=== PATIENT | female | born 1945 | race Caucasian/White ===

== ENCOUNTER 2020-04-05 14:07 | Outpatient (CLI) | payer MEDICARE, SELFPAY ==
--- NOTE | 2020-04-05 18:11 | P.PCNPFT_ITS ---
PFT Interpretation PFT Interpretation: DOS: 04/05/2020 REQUESTING: Dr Correa REASON FOR TESTING: Shortness of breath PULMONARY FUNCTION TESTS Results are reliable and reproducible. Spirometry: FEV1 is 99%, FVC 89%, both normal. FEV1% normal. There is a non- statistically significant increase after bronchodilator. Lung volumes: TLC 88%, normal. Normal RV, no air trapping. Normal airway resistance. Diffusion: DLCO is normal, 81%. Flow volume loop: Normal. IMPRESSION: Normal study. Teresa Correa MD
== END 2020-04-05 14:08 | disposition home or self-care (01) ==
PROVIDERS: PCP Family Medicine; Visit Provider Internal Medicine Critical Care Medicine
DX: R05 Cough (principal)
CPT/HCPCS: 94060; 94726; 94729

== ENCOUNTER 2020-10-12 11:24 | Outpatient (NON) | payer MEDICARE, SELFPAY ==
[2020-10-13 06:44] LABS: SARS-CoV-2 RNA PCR Negative
== END 2020-10-12 11:25 ==
LOC: ANHCOVIDDT 11:25
PROVIDERS: PCP Family Medicine; Visit Provider Physician Assistant
DX: Z20.828 Contact with and (suspected) exposure to other viral communicable diseases (principal); R05 Cough
CPT/HCPCS: 87635; C9803; U0003

== ENCOUNTER 2022-05-06 13:08 | Outpatient (CLI) | payer MEDICARE, SELFPAY ==
--- NOTE | ~2022-05-06 | XR_ITS ---
EXAM: XR knee RT 2V DATE: 05/06/2022 13:39 HISTORY: CHRONIC PAIN IN RT KNEE . COMPARISON: None available. FINDINGS: Decreased mineralization. No fracture or dislocation. No lytic or blastic lesion. Moderate medial and severe lateral joint space narrowing. Tricompartmental osteophytosis, moderate in patello femoral and lateral compartments. No erosion or periosteal change. Minimal vascular calcification. 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 Reviewed, dictated and finalized at location K. IMPRESSION: Tricompartmental right knee osteoarthritis, severe in the lateral c ompartment.
--- NOTE | ~2022-05-06 | XR_ITS ---
EXAMINATION: XR shoulder LT min 2V DATE: 05/06/2022 13:40 INDICATION: Nontraumatic left shoulder pain TECHNIQUE: AP internally and externally rotated, AP oblique externally rotated and transscapular Y vi ews of the left shoulder were obtained. COMPARISON: None FINDINGS: Normal alignment. No fracture. Glenohumeral joint is normal. Mild acromioclavicular osteoarthritis. /Portions of the lungs are clear. Soft tissues are unremarkable. IMPRESSION: Mild acromioclavicular osteoarthritis. Reviewed, dictated and finalized at location A.
== END 2022-05-06 13:09 | disposition home or self-care (01) ==
PROVIDERS: PCP Family Medicine; Visit Provider Family Medicine
DX: M19.012 Primary osteoarthritis, left shoulder (principal); M17.11 Unilateral primary osteoarthritis, right knee
CPT/HCPCS: 73030; 73560

== ENCOUNTER 2022-07-31 09:51 | Outpatient (CLI) | payer MEDICARE, SELFPAY ==
--- NOTE | 2022-07-31 10:56 | ECG_ITS ---
Measurements Intervals Cameron Rate: 67 P: 85 RI: 169 QRS: 24 QRSD: 106 T: 68 QT: 413 QTc: 438 Interpretive Statements SINUS RHYTHM BORDERLINE T WAVE ABNORMALITY- ANTERIOR LEADS BASELINE ARTIFACT- I, III, AVR, AVL, AVF, V1, V4-V5 BORDERLINE ECG NO PREVIOUS ECG AVAILABLE FOR COMPARISON Electronically Signed On 07-31-2022 12:42:07 CDT by Héctor Castillo D.O.
[2022-07-31 11:20] LABS: Basophils Absolute Auto 0.1 K/mm3 (0.0-0.1); Basophils Percent Auto 1.1 % (0.2-1.2); Eosinophils Absolute Auto 0.1 K/mm3 (0-0.3); Eosinophils Percent Auto 1.9 % (0-4.4); Hematocrit 44.5 % (37.0-47.0); Hemoglobin 14.3 g/dL (12.0-15.0); Immature Granulocyte Absolute 0.03 K/mm3 (0.00-0.031); Immature Granulocyte Percent A 0.4 % (0-0.5); Lymphocytes Absolute Auto 1.87 K/mm3 (0.9-3.2); Mean Corpuscular HGB Conc 32.1 g/dl (32-36); Mean Corpuscular Hemoglobin 31.5 pg (26-34); Mean Platelet Volume 10.5 fl (7.4-10.4); Monocytes Absolute Auto 0.5 K/mm3 (0.1-0.6); Monocytes Percent Auto 7.2 % (2.6-8.5); Neutrophils Absolute Auto 4.5 K/mm3 (1.3-6.7); Neutrophils Percent Auto 63.4 % (45.5-73.1); Platelet Count Result 270 k/mm3 (150-375); Red Blood Count 4.54 M/mm3 (4.2-5.4); Red Cell Distribution Width 12.2 % (11.5-14.5); White Blood Count 7.2 K/mm3 (4.5-10.0)
[2022-07-31 11:28] LABS: Albumin Level 4.6 g/dL (3.5-5.1); Estimated Glomerular Filt Rate > 60; Glucose 99 mg/dL (65-110)
[2022-07-31 11:31] LABS: Urine Cotinine NEGATIVE
[2022-07-31 11:32] LABS: Hemoglobin A1C 5.5 % (<5.7)
== END 2022-07-31 09:52 | disposition home or self-care (01) ==
LOC: ANHSURGERY 10:00
PROVIDERS: PCP Family Medicine; Visit Provider Orthopaedic Surgery
DX: M17.11 Unilateral primary osteoarthritis, right knee (principal); Z01.818 Encounter for other preprocedural examination; R94.31 Abnormal electrocardiogram [ECG] [EKG]
CPT/HCPCS: 80307; 82040; 82565; 82947; 83036; 85025; 86850; 86900; 86901; 87081; 93005

== ENCOUNTER 2022-08-13 14:11 | Observation (INO) | payer MEDICARE, MEDICAID, SELFPAY ==
[2022-07-31 10:08] VITALS: BMI 33.7
--- NOTE | 2022-07-31 10:30 | PC.NURSE ---
Report to the Outpatient Waiting Room, entrance under the green pavilion located off [address], at time _0830 on date __08/12/22 . OR Time: __1030 . - You and your visitor will be asked to self-screen and do not enter if you have any COVID symptoms. - Only one visitor and NO children visitors are allowed at this time. - The patient visitor is requested to leave or wait in car when not with patient due to restrictions. - A mask is required within the hospital. Patients may have clear liquids (water, carbonated beverages, clear teas, apple juice) until 3 hours prior to surgery with a maximum of 20 ounces. - No food from midnight until time of surgery - Infants may have breast milk until 4 hours before surgery, infant formula 6 hours prior to surgery. - Children will be allowed to drink immediately following surgery. If applicable, please bring a bottle or sippy cup to assist with drinking. Juice, water, soda, and popsicles are readily available. For infants on formula, please bring formula the day of surgery. Pacifiers are allowed. Take the following medications with a SIP of water the morning of surgery: ____DONEPEZIL,LEVOTHYROXINE,SERTRALINE Medications to discontinue per physician __MULTIVITAMIN 3 DAYS PRE OP Date to take last dose__08/08/22 Please no make-up, nail azeri, hairspray, perfume, deodorant, or body powder the day of surgery. No jewelry (including any body piercings) or valuables the day of surgery, leave them at home. Please take a shower or bath the night before, or the morning of, surgery with an antibacterial soap. Wear comfortable, loose fitting clothing. Children are encouraged to wear pajamas. - Jewelry must be removed prior to entering the operating room. Rings and piercings that are not removed may be cut off. - The hospital will not accept responsibility for valuables. - Please leave all valuables, including medications, at home the day of surgery. If you are going home after surgery, a licensed furniture mover driver must drive you home. - NO public transportation without another adult. - We recommend that an adult stay with you for 24 hours following discharge. - We also recommend that you do not drive, make important decision, drink alcoholic beverages, or take any drugs that were not prescribed by your health care provider for at least 24 hours after your discharge time. For Pediatric surgeries, we recommend two adults accompany the child home (only one inside the building at this time). Follow any additional instructions given to you from your surgeon. If you or anyone in your household have experienced Covid symptoms in the past week, please notify your surgeon or the nurse liaison at the phone number below for possible testing. VERBAL AND WRITTEN instructions given to ___PATIENT and asked if any additional questions and then verbalized understanding. Patient advised to call surgeon office or pre surgery nurse liaison [phone] if any additional questions.
[2022-07-31 10:53] VITALS: BP 148/68; PULSE 72; RESP 18; TEMP 37.1; O2SAT 97
[2022-08-12] VITALS (23 sets, daily range): BP systolic 128–169; BP diastolic 55–89; PULSE 66–88; RESP 14–22; TEMP 36–36.7; O2SAT 93–100
--- NOTE | 2022-08-12 08:11 | WPDANESEPPF ---
Anes - Initial Pre Proc Eval Procedure: Operation Date: 08/12/22 10:30 Proposed Procedures p Right Total Knee Arthroplasty - Zeferino Melendez MD Date/Time: 08/12/22 08:11 Surgeon: Zeferino Melendez MD Pre Op Diagnosis: OA Right knee Patient Data Age: 77 Gender: F Height: 1.65 m Weight: 92.1 kg Last Vital Signs Temp 37.1 C 07/31/22 10:53 Pulse 72 07/31/22 10:53 Resp 18 07/31/22 10:53 BP 148/68 H 07/31/22 10:53 Pulse Ox 97 07/31/22 10:53 O2 Del Method Room Air 07/31/22 10:53 Allergies Allergy/AdvReac Type Severity Reaction Status Date / Time Sulfa (Sulfonamide Allergy Intermediate Rash Verified 08/12/22 09:15 Antibiotics) bee venom protein (honey bee) Allergy Unknown Hives Verified 08/12/22 09:15 sulfite Allergy Unknown Unknown Verified 08/12/22 09:15 Home Medications Medication Instructions Recorded Confirmed Type meloxicam 15 mg tablet 15 mg PO DAILY #90 tabs 03/14/22 08/12/22 Rx levothyroxine 75 mcg tablet See Rx Instructions .Route 04/15/22 08/12/22 Rx .COMPLEX #90 tabs simvastatin 10 mg tablet See Rx Instructions .Route 04/18/22 08/12/22 Rx .COMPLEX #90 tabs donepezil 5 mg tablet See Rx Instructions .Route 07/08/22 08/12/22 Rx .COMPLEX #30 tabs sertraline 25 mg tablet 50 mg PO DAILY 07/09/22 08/12/22 History ibuprofen 400 mg tablet 400 mg PO Q6H PRN Pain 07/31/22 08/07/22 History multivitamin 1 tablet PO DAILY 07/31/22 08/07/22 History rivaroxaban 10 mg tablet (Xarelto) 10 mg PO DAILY PE prophylaxis s/p 08/07/22 08/12/22 Rx surgery 14 days #14 tabs Patient hx anesthesia problems: none Family hx anesthesia problems: none Results Review: All pre-operative results and documents have been reviewed as part of the pre-operative evaluation. [facility] Past Medical History Medical History (Updated 08/12/22 @ 08:12 by Ned Reilly MD) Anxiety Arthritis of left knee Chronic cough Hepatitis C antibody test negative (06/28/21) Hypothyroidism Mixed hyperlipidemia Obesity (BMI 30.0-34.9) Sleep apnea Torn meniscus 2016 Surgical History Surgical History History of tubal ligation Family History Family History Mother Carcinoma of colon Grandparent Carcinoma of colon Father Family history of Alzheimer's disease Other Family history of elevated blood lipids Social History Social History Smoking status: Never smoker Additional smoking assessment comments: DENIES ANY FORM OF TOBACCO USE Alcohol intake: current Alcohol use details: ONE DRINK PER MONTH Substance use: never Substance use type: does not use Living arrangements: alone Gender identity (if verbalized by the patient): Female Spiritual care concerns: No Agree to blood products: Yes Anes - Eval Final PreProcedure Day of Procedure 08/12/22 08:11 Patient weight: obese Heart: regular rate and rhythm Lungs: clear to auscultation and normal air movement Airway: Mallampati scale class II Neurological: alert and oriented Last oral intake: >/= 8 hours ASA classification: III Emergent: no Anesthetic plan: proceed Anesthesia type and monitoring: general LMA Results Review: All pre-operative results and documents have been reviewed as part of the pre-operative evaluation. Informed Consent: The patient's anesthetic plan and its attendant risks and benefits were discussed with the patient/family/POA. Questions were solicited and answers provided to the satisfaction of the patient/family/POA.
[2022-08-12] MEDS: ACETAMINOPHEN 500 MG TABLET 1000 MG PO (09:17)
--- NOTE | 2022-08-12 09:20 | WPDHPUPDATE1 ---
History and Physical Update Update Date/Time: 08/12/22 09:21 History and Physical has been reviewed, including an updated exam of the patient. There are NO changes in the patient's condition. Risks, benefits, and alternatives have been discussed and questions answered. Patient agrees to proceed with procedure.
[2022-08-12] MEDS: LACTATED RINGERS 1,000 ML 30 ML IV CONT ×2 (09:25→12:40)
[2022-08-12] MEDS: TRANEXAMIC ACID 1,000MG/ISO100 1,000 MG/100 ML BAG 200 MG IVPB (09:27)
--- NOTE | 2022-08-12 10:03 | WPDANESPNB ---
Anes - Peripheral Nerve Block Date/Time: 08/12/22 10:03 I have discussed with the patient/family/POA the placement of a peripheral nerve block for post-operative pain management, including associated risks, benefits, complications, and side effects. Alternative methods of post-operative analgesia were detailed. Questions were solicited and answers provided to the satisfaction of the patient/family/POA. Time-Out: A pre-procedural Time-Out was completed immediately before starting the procedure and confirmed: Patient Identification, Site, Procedure, Patient Position and the Availability of Requisite Equipment. Clinical Indications: Acute post-operative pain management requested by the operative surgeon. Nerve Block Insertion Note Anes-nerve block: adductor canal right Patient position: supine Skin prep: chlorhexidine Needle: 22 gauge, stimulating, insulated echogenic needle. Needle length: 80 mm Technique: ultrasound Technique comment: in plane Injectate: bupivacaine 0.25% with epi 5 mcg/ml (30cc) Observations: tolerated well Complications: none Procedure start time:: 955 Procedure end time:: 1000
[2022-08-12] MEDS: ceFAZolin 2 GM/D5W 50 ML 2 GM/50 ML BAG IVPB ×2 (10:20→17:03)
[2022-08-12] MEDS: GENTAMICIN BONE CEMENT REFOBACIN 1 EACH TOPICAL (10:55)
[2022-08-12] MEDS: fentaNYL CITRATE INJ (*CRX) 100 MCG/2 ML VIAL 25 MCG IV PUSH ×8 (12:57→14:32)
[2022-08-12] MEDS: oxyCODONE/ACETAMINOPHEN (*CRX) 5-325 MG TABLET 1 TABLET PO ×3 (15:44→20:47)
[2022-08-12] MEDS: SODIUM CHLORIDE 0.9% IV 1,000 ML 125 ML IV CONT (16:59)
[2022-08-12] MEDS: LEVOTHYROXINE SODIUM 75 MCG TABLET BY MOUTH (17:04)
[2022-08-12] MEDS: SENNA/DOCUSATE SODIUM TABLET 2 TAB PO (17:04)
[2022-08-12] MEDS: SIMVASTATIN 10 MG TABLET BY MOUTH (17:04)
[2022-08-12] MEDS: DONEPEZIL HCL 5 MG TABLET BY MOUTH (17:04)
[2022-08-12] MEDS: FAMOTIDINE 20 MG TABLET PO (20:47)
[2022-08-12] MEDS: oxyCODONE HCL (*CRX) 2.5 MG TAB IR PO (22:51)
--- NOTE | 2022-08-12 23:01 | ADMGEN ---
This patient, Wendi Colon, was admitted to Medical Room 256-01. Patient/family oriented to hospital policies and general routines including ID bracelet, bed and alarms, visiting hours, pain management, procedures, bathroom and other care routines, personal items, smoking policy, room service/diet, and visiting hours. Information on how to activate the Rapid Response Team has been discussed. Patient/Family are encouraged to report perceived risks to care and to ask questions if they do not understand what they are told or what they should do. Admitted at 1700
[2022-08-13] VITALS (7 sets, daily range): BP systolic 114–143; BP diastolic 43–58; PULSE 70–82; RESP 14–16; TEMP 36.5–37.1; O2SAT 91–100
--- NOTE | ~2022-08-13 | XR_ITS ---
EXAMINATION: XR knee RT 2V DATE: 08/12/2022 12:49 INDICATION: Right knee arthroplasty. Postop. TECHNIQUE: 2 views of right knee were obtained. COMPARISON: Right knee radiographs 08/07/2022 FINDINGS: There is a total right knee arthroplasty in near-anatomic alignment with patellar resurfaci ng. No fracture. There is gas in the knee joint and soft tissues, consistent with recent surgery. IMPRESSION: 1. Total right knee arthroplasty in near-anatomic alignment. Reviewed, dictated and finalized at location A.
[2022-08-13] MEDS: oxyCODONE/ACETAMINOPHEN (*CRX) 5-325 MG TABLET 1 TABLET PO ×4 (01:30→20:36)
[2022-08-13] MEDS: ceFAZolin 2 GM/D5W 50 ML 2 GM/50 ML BAG IVPB ×2 (01:32→11:48)
[2022-08-13] MEDS: LEVOTHYROXINE SODIUM 75 MCG TABLET BY MOUTH (05:35)
[2022-08-13] MEDS: ONDANSETRON INJ 4 MG/2 ML VIAL IV PUSH (08:05)
--- NOTE | 2022-08-13 08:36 | PM.DS ---
DS: Admitting Diagnosis Discharge Date 08/13/2022 Admitting Diagnosis Right knee osteoarthritis DS: Discharge Diagnosis Discharge Diagnosis (1) Status post total right knee replacement: Code(s): Z96.651 - Presence of right artificial knee joint Status: Acute Plan 77-year-old female postop day 1 after total right knee replacement with Dr. Melendez. Overall doing very well this morning. She does have some swelling to the right knee but this is expected due to the recent surgical procedure. Postoperative instructions were discussed with her in detail. She had no further questions. Due to her history of memory loss and forgetfulness, home health will be ordered for 2 weeks. She also has her boyfriend at home to help her. Plan to see her in 2 weeks for wound check. We will also make sure that she is scheduled for continued outpatient physical therapy at that time. DS: Summary Hospital Course Reason for hospitalization: Observation after outpatient procedure Hospital Course: 77-year-old female who underwent right total knee replacement with Dr. Melendez on 08/12/2022. Uneventful overnight stay. Postoperative instructions were discussed with her. Plan to have her see therapy today prior to discharge home with home health. Status at Discharge Functional status at discharge: uses cane/walker Overall status at discharge: patient is progressing back to baseline Time Spent with Patient Time attestation: Total time spent providing and/or coordinating discharge services: Time spent: Less than 30 minutes Exam Const: General: comfortable and no acute distress Eyes: General: appearance normal, both eyes and all related structures Resp: Effort & Inspection: normal respiratory effort Skin: General skin exam: ecchymosis (Globally, right knee) Extrem: Other: Exam of the right knee shows a clean and dry surgical dressing. [id number] swelling around the knee, as expected from the surgical procedure. No numbness or tingling into the lower leg. She is able to plantar and dorsiflex the foot without difficulty. Neurovascular status right lower extremity is intact. Calves negative. Psych: Mental Status: mental status grossly normal Discharge Plan Discharge Patient Disposition: Home Health Service Discharge Instructions: 3 times daily for 20 minutes each time, reclining in bed with ice packs over the incision and a pillow underneath the calf of the affected leg, not under the knee. Your wound is glued so it is okay to remove the dressing, get into the shower and get the wound wet in two days. Be sure to read through all the information that came from my office and the hospital.? Most of the answers you will need can be found that material. Call the office with any questions that you cannot find answers to, or concerns you may have. After the Xarelto is completed, start taking one coated 325 mg aspirin daily and do this for four more weeks. Please call [facility] at as soon as possible to arrange for/verify your follow-up appointment to be seen in 2 weeks.? Also, call the office with any orthopedic/surgical related questions prior to follow-up. Be sure to get up and move around several times daily but do not overdo it. Take the arthritis formula Tylenol 650 mg tablet on an 8 hour schedule.? A good 8 hour schedule is:? 6:00 a.m., 2:00 p.m., 10:00 p.m. you may take the prescribed pain medication?along with?the Tylenol; it is?not?to be taken instead of the Tylenol.? I would like for you to take the Tylenol on a schedule for 2-3 weeks. Use the laxative?Senekot S?twice daily for 2 weeks after discharge while taking the prescription pain medication. Use?Miralax?once daily for 2 weeks after discharge while taking the prescription pain medication. Once the Xarelto is completed, if you wish to supplement your pain regimen with [id number] anti-inflammatory such as Advil or Aleve, that is fine.? Follow the label
--- NOTE | 2022-08-13 09:50 | WPDANESPN ---
Anes - Prog Note Post-Op Date/Time: 08/13/22 10:37 Cardiovascular status: normal Respiratory status: normal Airway patency: baseline Mental status: baseline Post-Op hydration status: normal Vital Signs: Last Vital Signs Temp 36.9 C 08/13/22 05:52 Pulse 70 08/13/22 05:52 Resp 14 08/13/22 05:52 BP 114/58 L 08/13/22 05:52 Pulse Ox 95 08/13/22 05:52 O2 Del Method Room Air 08/13/22 08:00 O2 Flow Rate 2 08/12/22 17:00 Pain Score (VAS): 01/03 I/O: Intake & Output 08/12/22 08/13/22 08/13/22 23:59 07:59 15:59 Intake Total 350 350 0 Balance 350 350 0 Post-procedural complaints: nausea and vomiting Patient Feedback: Patient satisfied with anesthetic care.
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
[2022-08-13] MEDS: FAMOTIDINE 20 MG TABLET PO ×2 (11:44→20:36)
[2022-08-13] MEDS: DONEPEZIL HCL 5 MG TABLET BY MOUTH (11:44)
[2022-08-13] MEDS: SIMVASTATIN 10 MG TABLET BY MOUTH (11:45)
[2022-08-13] MEDS: MULTIVITAMINS THERAPEUTIC TAB (*BKC) 1 TABLET PO (11:45)
[2022-08-13] MEDS: SERTRALINE HCL 50 MG TABLET PO (11:45)
[2022-08-13] MEDS: RIVAROXABAN 10 MG TABLET PO (11:45)
--- NOTE | 2022-08-13 12:36 | SUR.PHASEI ---
1400 08/12/22 PT MEETS ANESTHESIA CRITERIA TO BE DISCHARGED FROM PACU. WAITING ON A FLOOR ROOM TO BECOME AVAILABLE. ON HOLD IN PACU.
[2022-08-13] MEDS: SENNA/DOCUSATE SODIUM TABLET 2 TAB PO (19:31)
[2022-08-13] MEDS: oxyCODONE HCL (*CRX) 2.5 MG TAB IR PO (23:47)
[2022-08-14] MEDS: oxyCODONE/ACETAMINOPHEN (*CRX) 5-325 MG TABLET 1 TABLET PO ×4 (01:07→14:17)
[2022-08-14 04:46] VITALS: BP 127/50; PULSE 80; RESP 16; TEMP 36.6; O2SAT 91
[2022-08-14] MEDS: LEVOTHYROXINE SODIUM 75 MCG TABLET BY MOUTH (05:30)
[2022-08-14] MEDS: SENNA/DOCUSATE SODIUM TABLET 2 TAB PO ×2 (08:12→18:12)
[2022-08-14] MEDS: FAMOTIDINE 20 MG TABLET PO ×2 (08:13→20:09)
[2022-08-14] MEDS: SERTRALINE HCL 50 MG TABLET PO (08:13)
[2022-08-14] MEDS: SIMVASTATIN 10 MG TABLET BY MOUTH (08:13)
[2022-08-14] MEDS: DONEPEZIL HCL 5 MG TABLET BY MOUTH (08:13)
[2022-08-14] MEDS: polyethylene glycoL 3350 17 GM POWD.PACK PO (08:13)
[2022-08-14] MEDS: RIVAROXABAN 10 MG TABLET PO (08:13)
[2022-08-14] MEDS: MULTIVITAMINS THERAPEUTIC TAB (*BKC) 1 TABLET PO (08:13)
--- NOTE | 2022-08-14 08:52 | PCOTNOTE ---
Attempted to see patient this AM, patient currently eating breakfast.
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
--- NOTE | 2022-08-14 11:20 | PM.PNORT ---
Progress Note: A&P Assessment and Plan (1) Status post total right knee replacement: Code(s): Z96.651 - Presence of right artificial knee joint Status: Acute Plan 77-year-old female postop day 2 after total right knee replacement with Dr. Melendez. She developed nausea with vomiting yesterday but this has resolved. I added Zofran to her discharge medications to take as needed. Plan for her to see therapy again this afternoon while in hospital and then discharge home with family. She will also have home health out tomorrow to help her with her medications and therapy. Continue to plan follow-up in 2 weeks for wound check in the office. Subjective Subjective Date/Time Seen: 08/14/22 11:20 Post Op day: 2 Principal diagnosis: Status post total right knee replacement Interval history: 77-year-old female minute for observation after total right knee replacement with Dr. Melendez. Did develop some nausea yesterday and had a skip therapy session. She was kept another night. Nausea has resolved this morning. She does seem a little more out of it than usual. Review of Systems Constitutional: Constitutional: Reports as per HPI Exam Const: General: comfortable and no acute distress Eyes: General: appearance normal, both eyes and all related structures Resp: Effort & Inspection: normal respiratory effort GI: Inspection: non-distended Skin: General skin exam: normal color Extrem: Other: Exam of the right knee shows a clean and dry surgical dressing. [id number] swelling around the knee, as expected from the surgical procedure. No numbness or tingling into the lower leg. She is able to plantar and dorsiflex the foot without difficulty. Neurovascular status right lower extremity is intact. Calves negative. Psych: Mental Status: mental status grossly normal Objective Data Vital Signs Vital Signs: Vital Signs - 24 hr 08/13/22 14:14 08/13/22 18:14 08/13/22 19:25 Temperature 98.7 F 98.2 F 98.1 F Pulse Rate 79 74 82 Respiratory Rate 14 15 16 Blood Pressure 122/52 L 124/58 L 128/50 L Pulse Oximetry 100 100 96 Oxygen Delivery 08/13/22 22:58 08/14/22 04:46 08/14/22 10:00 Temperature 98.2 F 97.8 F Pulse Rate 81 80 Respiratory Rate 16 16 Blood Pressure 123/51 L 127/50 L Pulse Oximetry 91 91 Oxygen Delivery Room Air Intake/Output Intake/Output: Intake & Output 08/11/22 08/12/22 08/13/22 08/14/22 23:59 23:59 23:59 23:59 Intake Total 500 1272 570 Balance 500 1272 570 Meds/Results Medications: Active Medications Generic Name Dose Route Start Last Admin Trade Name Freq PRN Reason Stop Dose Admin Donepezil HCl 5 mg 08/12/22 18:00 08/14/22 08:13 Donepezil Hcl 5 Mg Tablet BY MOUTH 5 mg DAILY CHOCO Administration Famotidine 20 mg 08/12/22 21:00 08/14/22 08:13 Famotidine 20 Mg Tablet PO 20 mg Q12HR CHOCO Administration Levothyroxine Sodium 75 mcg 08/12/22 17:00 08/14/22 05:30 Levothyroxine Sodium 75 Mcg Tablet BY MOUTH 75 mcg DAILY@0630 CHOCO Administration Multivitamins Therapeutic 1 tablet 08/13/22 09:00 08/14/22 08:13 Multivitamins Therapeutic Tab (*Bkc) PO 1 tablet DAILY CHOCO Administration Naloxone HCl 0.1 mg 08/12/22 16:29 Naloxone Hcl 0.4 Mg/Ml Vial IV PUSH Q2M PRN Opiate Reversal Ondansetron HCl 4 mg 08/12/22 16:29 08/13/22 08:05 Ondansetron Inj 4 Mg/2 Ml Vial IV PUSH 4 mg Q4H PRN Administration Nausea And Vomiting Oxycodone HCl 2.5 mg 08/12/22 16:29 08/13/22 23:47 Oxycodone Hcl (*Crx) 2.5 Mg Tab Ir PO 2.5 mg Q4H PRN Administration Pain Rated 7-10 Oxycodone/Acetaminophen 1 tablet 08/12/22 15:40 08/14/22 10:02 Oxycodone/Acetaminophen (*Crx) 5-325 Mg Tablet PO 08/14/22 15:39 1 tablet Q4HR CHOCO Administration Polyethylene Glycol 17 gm 08/13/22 09:00 08/14/22 08:13 Polyethylene Glycol 3350 17 Gm Powd.Pack PO 17 gm QAM CHOCO Administration Rivaroxaban 10 mg 0
[2022-08-14 11:40] VITALS: BP 133/50; PULSE 90; RESP 16; O2SAT 93
[2022-08-14] MEDS: oxyCODONE HCL (*CRX) 2.5 MG TAB IR PO ×2 (11:42→18:12)
[2022-08-14 15:00] VITALS: BP 131/57; PULSE 92; RESP 16; TEMP 36.7; O2SAT 94
--- NOTE | 2022-08-14 15:12 | PC.NURSE ---
Spoke with patient about discharge. Patient is comfortable staying another night to work with therapy again tomorrow and ensure her safety upon returning home.
[2022-08-14 21:00] VITALS: BP 142/50; PULSE 87; RESP 16; TEMP 36.9; O2SAT 95
[2022-08-15] MEDS: LEVOTHYROXINE SODIUM 75 MCG TABLET BY MOUTH (05:34)
[2022-08-15 05:36] VITALS: BP 146/52; PULSE 91; RESP 16; TEMP 37.1; O2SAT 94
--- NOTE | 2022-08-15 07:39 | PM.PNORT ---
Progress Note: A&P Assessment and Plan (1) Status post total right knee replacement: Code(s): Z96.651 - Presence of right artificial knee joint Status: Acute Plan 77-year-old female postop day 3 after total right knee replacement with Dr. Melendez. She did struggle yesterday afternoon with therapy. She states this is because she was not able to eat very well prior to that session. She is on Aricept and I feel that some of her memory issues may be playing into this fatigue. I feel that she would do better at home. She has home health scheduled for her medications and therapy. I also spoke with her daughter and she plans to stay with her over the weekend. Plan discharge today after morning therapy visit. Will make an addendum to discharge summary. Subjective Subjective Date/Time Seen: 08/15/22 07:39 Post Op day: 3 Principal diagnosis: Status post total right knee replacement Interval history: 77-year-old female admitted for observation after total right knee replacement with Dr. Melendez. She was kept another night due to feelings of fatigue during therapy yesterday afternoon. This morning she is feeling much better but still does complain of right knee pain. She states she felt fatigued yesterday evening due to not being able to eat as much as she normally had. Review of Systems Constitutional: Constitutional: Reports as per HPI Exam Const: General: comfortable and no acute distress Eyes: General: appearance normal, both eyes and all related structures Resp: Effort & Inspection: normal respiratory effort GI: Inspection: non-distended Skin: General skin exam: normal color Extrem: Other: Exam of the right knee shows a clean and dry surgical dressing. [id number] swelling around the knee, as expected from the surgical procedure. No numbness or tingling into the lower leg. Neurovascular status right lower extremity is intact. Calves negative. Psych: Mental Status: mental status grossly normal Objective Data Vital Signs Vital Signs: Vital Signs - 24 hr 08/14/22 10:00 08/14/22 11:40 08/14/22 15:00 Temperature 98.0 F Pulse Rate 90 92 Respiratory Rate 16 16 Blood Pressure 133/50 L 131/57 L Pulse Oximetry 93 94 Oxygen Delivery Room Air 08/14/22 21:00 08/15/22 05:36 Temperature 98.5 F 98.7 F Pulse Rate 87 91 Respiratory Rate 16 16 Blood Pressure 142/50 H 146/52 H Pulse Oximetry 95 94 Oxygen Delivery Intake/Output Intake/Output: Intake & Output 08/12/22 08/13/22 08/14/22 08/15/22 23:59 23:59 23:59 23:59 Intake Total 500 1272 2132 450 Output Total 200 Balance 500 1272 2132 250 Meds/Results Medications: Active Medications Generic Name Dose Route Start Last Admin Trade Name Freq PRN Reason Stop Dose Admin Donepezil HCl 5 mg 08/12/22 18:00 08/14/22 08:13 Donepezil Hcl 5 Mg Tablet BY MOUTH 5 mg DAILY CHOCO Administration Famotidine 20 mg 08/12/22 21:00 08/14/22 20:09 Famotidine 20 Mg Tablet PO 20 mg Q12HR CHOCO Administration Levothyroxine Sodium 75 mcg 08/12/22 17:00 08/15/22 05:34 Levothyroxine Sodium 75 Mcg Tablet BY MOUTH 75 mcg DAILY@0630 CHOCO Administration Multivitamins Therapeutic 1 tablet 08/13/22 09:00 08/14/22 08:13 Multivitamins Therapeutic Tab (*Bkc) PO 1 tablet DAILY CHOCO Administration Naloxone HCl 0.1 mg 08/12/22 16:29 Naloxone Hcl 0.4 Mg/Ml Vial IV PUSH Q2M PRN Opiate Reversal Ondansetron HCl 4 mg 08/12/22 16:29 08/13/22 08:05 Ondansetron Inj 4 Mg/2 Ml Vial IV PUSH 4 mg Q4H PRN Administration Nausea And Vomiting Oxycodone HCl 2.5 mg 08/12/22 16:29 08/14/22 18:12 Oxycodone Hcl (*Crx) 2.5 Mg Tab Ir PO 2.5 mg Q4H PRN Administration Pain Rated 7-10 Polyethylene Glycol 17 gm 08/13/22 09:00 08/14/22 08:13 Polyethylene Glycol 3350 17 Gm Powd.Pack PO 17 gm QAM CHOCO Administration Rivaroxaban 10 mg 08/13/22 10:00 08/14/22 08:13 Rivaroxaban
[2022-08-15] MEDS: SENNA/DOCUSATE SODIUM TABLET 2 TAB PO (08:05)
[2022-08-15] MEDS: SERTRALINE HCL 50 MG TABLET PO (08:06)
[2022-08-15] MEDS: RIVAROXABAN 10 MG TABLET PO (08:06)
[2022-08-15] MEDS: MULTIVITAMINS THERAPEUTIC TAB (*BKC) 1 TABLET PO (08:06)
[2022-08-15] MEDS: SIMVASTATIN 10 MG TABLET BY MOUTH (08:06)
[2022-08-15] MEDS: DONEPEZIL HCL 5 MG TABLET BY MOUTH (08:06)
[2022-08-15] MEDS: FAMOTIDINE 20 MG TABLET PO (08:06)
[2022-08-15] MEDS: polyethylene glycoL 3350 17 GM POWD.PACK PO (08:06)
[2022-08-15 10:00] VITALS: BP 142/54; PULSE 88; RESP 16; TEMP 37.1; O2SAT 94
--- NOTE | 2022-08-26 11:44 | P.OP_ITS ---
Procedure Note - Detailed Date of Procedure 08/12/22 Pre-op Diagnosis OA Right knee Post-op Diagnosis Same Procedure Performed R TKA Surgeon Zeferino Melendez MD Anesthesia General and Regional Description of Procedure The patient was identified and proper site identified. In the preop holding area the anesthesia team performed a right sub sartorial block after which the patient was taken to the operating room and transferred to the OR table positioning supine taking care to pad the torso and extremities. After general anesthesia was carried out, a nonsterile tourniquet was placed high on the right thigh. The right lower extremity was prepped and draped in the usual sterile fashion. The extremity was exsanguinated and with the knee flexed tourniquet was inflated to 300 mmHg remaining up for approximately 65 minutes. An anterior midline incision was made. Infra and suprapatellar fat pads were excised. Patella was resected leaving 15 mm thickness and prepared for the 31 round three peg component. Using the intramedullary guide the distal femur was cut in the proper orientation for the size 65 femoral component. Using the extramedullary guide the tibia was cut perpendicular to the long axis protecting collateral ligaments and popliteal structures. It was sized to a 67. Flexion and exten regina gaps were balanced. Trial reduction was undertaken and the weight-bearing line was noted to passed through the center of the joint. Proximal tibia was drilled and punched in the proper orientation for the real component. Trial components were removed. The bone surfaces were washed with pulsatile lavage and dried. The real components were cemented simultaneously. The knee was held in extension and the patella held clamped until the cement had cured. Excess cement was removed from the joint. After trialing it was determined that the 11 mm insert gave full range of motion from 0-120 degrees of flexion and the patella tracked in the femoral groove with no lift-off. After final lavage the joint the real 11 insert was placed and secured with a locking bar. A Betadine and saline wash was placed into the wound and allowed to sit for approximately 3 minutes and then evacuated. Periarticular tissues were infiltrated with 60 cc of the arthroplasty solution. Surgicel powder was applied into the wound during the closure. The extensor mechanism was repaired with #2 Vicryl suture and 0 looped PDS suture. Subcu was reapproximated with 2-0 stratafix and glue for the skin. A sterile dressing was applied. She tolerated the procedure well, was awakened and extubated, transferred to the bed and was taken to recovery area in stable condition. There were no known intraoperative complications. Perioperative antibiotics were administered. Estimated Blood Loss 100 Tourniquet Time 65 Urine Output 200 Drains No Packing No Pathology None sent Complications No immediate complications Condition Stable Disposition PACU
== END 2022-08-15 12:49 | disposition home health service (06) ==
LOC: ANHSURGERY 14:13 → ANH2MED 14:13
PROVIDERS: Admitting Provider Orthopaedic Surgery; PCP Family Medicine; Visit Provider Orthopaedic Surgery
PROC: (CPT 27447; principal; 2022-08-12 10:30)
DX: M17.11 Unilateral primary osteoarthritis, right knee (principal); G89.18 Other acute postprocedural pain; R11.2 Nausea with vomiting, unspecified; F41.9 Anxiety disorder, unspecified; R05.9 Cough, unspecified; E03.9 Hypothyroidism, unspecified; E78.2 Mixed hyperlipidemia; M17.12 Unilateral primary osteoarthritis, left knee; R53.83 Other fatigue; E66.9 Obesity, unspecified; Z68.33 Body mass index [BMI] 33.0-33.9, adult; G47.30 Sleep apnea, unspecified; Z79.01 Long term (current) use of anticoagulants; Z79.1 Long term (current) use of non-steroidal anti-inflammatories (NSAID); Z79.891 Long term (current) use of opiate analgesic; Z79.899 Other long term (current) drug therapy
CPT/HCPCS: 27447; 64447; 73560; 80307; 82040; 82565; 82947; 83036; 85025; 86850; 86900; 86901; 87081; 93005; 97110; 97116; 97161; 97165; 97530; 97535; A9270; C1713; C1776; G0378; J0171; J0690; J1100; J2250; J2270; J2310; J2405; J2704; J2795; J3010; J7030; J7120

== ENCOUNTER 2022-09-12 10:00 | Outpatient (RCR) | payer MEDICARE, MEDICAID, SELFPAY ==
--- NOTE | 2022-08-19 13:47 | PTOPEVAL1 ---
Assessment and note entered by Alejandra Edgar, PT Evaluation Information Assessment Status Evaluation Diagnosis s/p R TKR Onset 08-12-22 Subjective Information used a walker for few days, and then it got in the way in her house; now not using anything to walk; doing the lying down and sitting exercises from the hospital; Reported Pain Level Pain Score Self Report pain range 0-3/10 R knee Additional Pain Score Comments reports increase pain with: squat down,sharp when turn knee a certain way; reported walking/stand tolerance 1 hour; sleeping is now OK, use pillow under knee; instructed on use of pillow between knees when lie on her side; Assessment PT Clinical Summary Harmeet is s/p R TKR one week ago. She lives alone, has been walking without an assistive device the past few days and doing the exercises from the hospital. She presents with R knee active ROM in sitting (-20') to 95' and supine stretch knee extension (-15'). She ambulates with a limp on her R LE, encouraged her to use the cane or walker PRN to avoid limp. There is edema and bruising over R knee. Skilled PT services are indicated to increase the ROM and strength of her R knee, modalities to decrease pain and edema, gait and balance retraining and education to progress HEP. Plan of Care Interventions Electrical Stimulation,Gait Training,Hot Pack/Cold Pack,Intermittent Compression,Manual Therapy, Neuro Re-education,Patient/Caregiver Education, Therapeutic Activities,Therapeutic Exercise PT Services Indicated Yes Treatment Frequency and 2x/wk for 3 weeks Duration These treatments will address the objective and functional deficits as defined above. The patient will be advanced safely and appropriately in order for the patient to progress towards his/her prior level of function. Additional exercises will be introduced and as well as a comprehensive home exercise program upon discharge, if needed, ?to ensure carryover of functional gains achieved in the clinic. This treatment plan has been reviewed and agreement upon by the patient.
--- NOTE | 2022-09-09 09:57 | PCPTNOTE ---
pt called and canceled today's appt;
--- NOTE | 2022-09-12 10:46 | PTOPDC ---
Assessment and note entered by Alejandra Edgar, PT Evaluation Information Assessment Status Discharge Diagnosis s/p R TKR Onset 08-12-22 Subjective Information Wendi reports: doing OK getting around her house, use the cane sometimes when go out, problems getting knee comfortable at night with sleeping-- knee is uncomfortable; have not been using ice anymore--reinstruct to use PRN, at end of day when knee is swollen and before sleep to ease pain; doing exercises without any problems; Reported Pain Level Pain Score Self Report Additional Pain Score Comments pain range of 0-3/10 R knee pain; uncomfortable at night with sleeping; standing/walking tolerance of 1 hour; doing more at home--shampooed rugs, pain does not stop me from doing anything; still have some swelling in knee--reinforced ice use and elevation; is not taking any pain meds for knee; Assessment PT Clinical Summary Harmeet has received 4 PT sessions. Compared to the initial evaluation--she improved in all areas except pain rating is the same: strength of R LE, ROM of knee 0'- 105' active in sitting; gait without device, activity level and stair ability with alternating pattern. She is independent with her home exercises and reports more activity. The goals were partially achieved. Discharge PT services, pt is to continue with her home exercises, with rest, ice and elevation PRN for swelling. Plan of Care PT Services Indicated No
== END 2022-09-12 14:45 | disposition home or self-care (01) ==
LOC: ANHPT 10:00
PROVIDERS: PCP Family Medicine; Visit Provider Nurse Practitioner
DX: Z47.1 Aftercare following joint replacement surgery (principal); Z96.651 Presence of right artificial knee joint
CPT/HCPCS: 97016; 97110; 97116; 97140; 97161

== ENCOUNTER 2022-09-25 12:14 | Emergency (ER) | payer MEDICARE, MEDICAID, SELFPAY ==
--- NOTE | ~2022-09-25 | CT_ITS ---
EXAMINATION: CT abdomen pelvis w con DATE: 09/25/2022 14:42 INDICATION: Right flank pain. Nausea and vomiting. TECHNIQUE: Computed tomography (CT) of the abdomen and pelvis was performed with 100 mL Omnipaque 350 intravenous contrast. Automated exposure control and iterative reconstruction technique were employe d. The dose-length product was 1108.66 mGy-cm. COMPARISON: None. FINDINGS: The visualized portions of the lung bases demonstrate mild atelectasis. No pleural effusion . The heart size is normal. No pericardial effusion. There is a small sliding hiatal hernia. The live r, gallbladder, spleen, pancreas, adrenal glands, and kidneys are normal. There is diverticulosis of the colon without evidence of diverticulitis. There are no dilated loops of bowel. The appendix is no rmal. There are no pathologically enlarged lymph nodes. There is no free intraperitoneal fluid. There is a 4.6 cm cyst in left ovary. There is severe lumbar spondylosis. IMPRESSION: 1. Small sliding hiatal hernia. 2. 4.6 cm cyst in left ovary, likely benign. Pelvis ultrasound is recommended in one year. Reviewed, dictated and finalized at location A. IMPRESSION: 1. Small sliding hiatal hernia. 2. 4.6 cm cyst in left ovary, likely benign. Pelvis ultrasound is recommended i n one year.
[2022-09-25 12:40] VITALS: BP 160/79; PULSE 78; RESP 14; TEMP 36.7; O2SAT 98
[2022-09-25 12:55] LABS: Basophils Absolute Auto 0.1 K/mm3 (0.0-0.1); Basophils Percent Auto 0.7 % (0.2-1.2); Eosinophils Absolute Auto 0.1 K/mm3 (0-0.3); Eosinophils Percent Auto 1.2 % (0-4.4); Hematocrit 45.9 % (37.0-47.0); Hemoglobin 14.4 g/dL (12.0-15.0); Immature Granulocyte Absolute 0.05 K/mm3 (0.00-0.031); Immature Granulocyte Percent A 0.5 % (0-0.5); Lymphocytes Absolute Auto 1.43 K/mm3 (0.9-3.2); Lymphocytes Percent Auto 13.7 % (18.3-44.2); Mean Corpuscular HGB Conc 31.4 g/dl (32-36); Mean Corpuscular Volume 98.7 fl (80-100); Mean Platelet Volume 10.7 fl (7.4-10.4); Monocytes Absolute Auto 0.5 K/mm3 (0.1-0.6); Monocytes Percent Auto 5.1 % (2.6-8.5); Neutrophils Absolute Auto 8.3 K/mm3 (1.3-6.7); Neutrophils Percent Auto 78.8 % (45.5-73.1); Platelet Count Result 295 k/mm3 (150-375); Red Blood Count 4.65 M/mm3 (4.2-5.4); Red Cell Distribution Width 12.6 % (11.5-14.5); White Blood Count 10.5 K/mm3 (4.5-10.0)
[2022-09-25 13:08] LABS: Alanine Aminotransferase 17 U/L (6-35); Albumin Level 4.7 g/dL (3.5-5.1); Alkaline Phosphatase 108 U/L (38-126); Anion Gap 14 mmol/L (8-16); Aspartate Amino Transferase 29 U/L (14-36); Bilirubin,Total 0.5 mg/dL (0.2-1.3); Blood Urea Nitrogen 11 mg/dL (7-17); Calcium 8.8 mg/dL (8.4-10.2); Carbon Dioxide 26 mmol/L (22-30); Chloride 101 mmol/L (98-107); Estimated CRCL calculation 57 ml/min; Estimated Glomerular Filt Rate > 60; Glucose 115 mg/dL (65-110); Lipase 122 U/L (23-300); Sodium 141 mmol/L (137-145)
[2022-09-25 13:16] LABS: Appearance Urine Clear (Clear); Bilirubin Urine 1+ (Negative); Blood Urine Trace-intact (Negative); Color Urine Yellow (Yellow); Glucose Urine UA Negative (Negative); Ketones Urine Trace mg/dL (Negative); Leukocyte Esterase Ur Trace LEU/UL (Negative); Nitrate Urine Negative (Negative); Protein Urine 2+ mg/dL (Negative); Specific Grav Ur >= 1.030 (1.001-1.035); Urobilinogen Urine 0.2 mg/dL (<2.0); pH Urine 5.5 (5.0-9.0)
[2022-09-25 13:35] LABS: Bacteria Urine Trace /hpf; Mucus Urine Few /lpf; Squamous Epithelial Cell Urine Rare /hpf (Few)
[2022-09-25 13:54] LABS: Add Urine Microscopic? YES
--- NOTE | 2022-09-25 14:04 | ED.ABDPAIN ---
HPI - Abdominal Pain General Chief Complaint: Abdominal Pain <FER Dunne Last Filed: 09/25/22 18:21> Stated Complaint: RIGHT FLANK PAIN X 2 DAYS <FER Dunne Last Filed: 09/25/22 18:21> Time Seen by Provider: 09/25/22 13:49 <FER Dunne Last Filed: 09/25/22 18:21> History of Present Illness HPI narrative: 77-year-old female here for evaluation of right flank pain over the past 2 days. Patient states the pain is intermittent in nature, started off as a light cramping, has increased in severity ever since. Pain acutely worsened today and became associated with an episode of nausea and vomiting. Reports possible urinary frequency. Denies fevers, chills, dysuria, urgency, hematuria, diarrhea or abdominal pain. No history of kidney stones. No rashes. <FER Dunne Last Filed: 09/25/22 18:21> Related Data Home Medications: Home Medications Medication Instructions Recorded Confirmed sertraline 25 mg tablet 50 mg PO DAILY 07/09/22 08/27/22 ibuprofen 400 mg tablet 400 mg PO Q6H PRN Pain 07/31/22 08/27/22 multivitamin 1 tablet PO DAILY 07/31/22 08/27/22 <FER Dunne Last Filed: 09/25/22 18:21> Allergies/Adverse Reactions: Allergies Allergy/AdvReac Type Severity Reaction Status Date / Time Sulfa (Sulfonamide Allergy Intermediate Rash Verified 08/27/22 09:15 Antibiotics) bee venom protein (honey bee) Allergy Unknown Hives Verified 08/27/22 09:15 sulfite Allergy Unknown Unknown Verified 08/27/22 09:15 <FER Dunne Last Filed: 09/25/22 18:21> Review of Systems Review of Systems: Gen.: Denies fevers or chills Eyes: Denies eye pain or visual change ENT: Denies congestion Respiratory: Denies shortness of breath or cough CV: Denies chest pain or palpitations GI: Reports nausea and vomiting. Denies abdominal pain or diarrhea : denies burning, urgency, frequency or hematuria Musculoskeletal: Reports flank pain. Denies back pain or muscle pain Neuro: Denies numbness, tingling, weakness or focal weakness Skin: Denies rash Except as documented, all other systems reviewed and negative <Nasreen Espinoza PA-C - Last Filed: 09/25/22 18:21> PMFSH Past Medical History Medical History: Medical History Anxiety Arthritis of left knee Chronic cough Hepatitis C antibody test negative (06/28/21) Hypothyroidism Mixed hyperlipidemia Obesity (BMI 30.0-34.9) Sleep apnea Torn meniscus 2015 <Nasreen Espinoza PA-C - Last Filed: 09/25/22 18:21> Surgical History Surgical History: Surgical History History of tubal ligation <Nasreen Espinoza PA-C - Last Filed: 09/25/22 18:21> Family History Family History: Family History Mother Carcinoma of colon Grandparent Carcinoma of colon Father Family history of Alzheimer's disease Other Family history of elevated blood lipids <Nasreen Espinoza PA-C - Last Filed: 09/25/22 18:21> Social History Social History: Social History Social History: patient lives at home alone. She is independent in her daily activities. She designates her daughter, Henny, as her surrogate decision maker. She is a full code. Smoking status: Never smoker Alcohol use details: 1-2 drinks/year on holidays/special occasions Substance use: never Spiritual care concerns: No Agree to blood products: Yes <Nasreen Espinoza PA-C - Last Filed: 09/25/22 18:21> Exam Narrative: APPEARANCE: Well appearing, no pain in distress, well-nourished. Head: Normocephalic and atraumatic. EYES: PERRLA/EOMI, conjunctivae clear NOSE: No nasal drainage EARS: External ear normal in appearan
[2022-09-25] MEDS: LIDOCAINE 5% PATCH 1 PATCH TRANSDERM (15:14)
[2022-09-25] MEDS: ACETAMINOPHEN 325 MG TABLET 650 MG PO (15:14)
== END 2022-09-25 15:20 | disposition home or self-care (01) ==
PROVIDERS: Emergency Provider Emergency Medicine; PCP Family Medicine
DX: N39.0 Urinary tract infection, site not specified (principal); E03.9 Hypothyroidism, unspecified; E78.2 Mixed hyperlipidemia; M17.12 Unilateral primary osteoarthritis, left knee; G47.30 Sleep apnea, unspecified; N83.202 Unspecified ovarian cyst, left side
CPT/HCPCS: 36415; 74177; 80053; 81001; 83690; 85025; 99284; A9270; Q9967

== ENCOUNTER 2022-10-09 12:17 | Observation (INO) | payer MEDICARE, MEDICAID, SELFPAY ==
[2022-10-09] VITALS (18 sets, daily range): BP systolic 131–146; BP diastolic 42–78; PULSE 68–100; RESP 13–24; TEMP 36.3–36.7; O2SAT 99–100
--- NOTE | ~2022-10-09 | US_ITS ---
EXAMINATION: US carotid duplex BI DATE: 10/09/2022 23:41 INDICATION: Syncope. TECHNIQUE: Grayscale, color Doppler, and pulsed Doppler images of the cervical carotid arteries were obtained. The degree of vessel stenosis is placed in one of the following categories: normal, <50%, 5 0-69%, >=70% but less than near-occlusion, near-occlusion, or total occlusion. Note that percent sten osis relative to normal distal artery lumen diameter is indirectly measured from velocity measurement s as described by Ryan, et al. Radiology 2003; 229:340-346. COMPARISON: None. FINDINGS: RIGHT: The right common carotid artery (CCA) peak systolic velocity (PSV) is 100 cm/s. The right internal ca rotid artery (ICA) PSV is 104 cm/s. The right ICA end-diastolic velocity (EDV) is 27 cm/s. The right ICA/CCA PSV ratio is 1.0. Grayscale and color Doppler images yield an estimate of <50% diameter reduc tion from plaque in the ICA. There is antegrade flow in the right vertebral artery. LEFT: The left CCA PSV is 97 cm/s. The left ICA PSV is 129 cm/s. The left ICA EDV is 41 cm/s. The left ICA/ CCA PSV ratio is 1.3. Grayscale and color Doppler images yield an estimate of <50% diameter reduction from plaque in the ICA. There is antegrade flow in the left vertebral artery. IMPRESSION: 1. <50% stenosis in the right internal carotid artery. 2. <50% stenosis in the left internal carotid artery. Reviewed, dictated and finalized at location A. ICE SPECIALIST
--- NOTE | ~2022-10-09 | CT_ITS ---
EXAMINATION: CT brain wo con DATE: 10/09/2022 14:09 INDICATION: Syncope TECHNIQUE: Computed tomography (CT) of the head was performed without intravenous contrast. Sagittal and coronal reconstructions were performed. The mA was adjusted according to patient size. Iterative reconstruction technique was employed. The dose-length product was 605.33 mGy-cm. COMPARISON: None FINDINGS: No acute intracranial hemorrhage, acute infarction or abnormal extra axial fluid collection. There is mild scattered white matter hypoattenuation consistent with chronic small vessel ischemic disease. V entricles are normal and symmetric. No mass/mass effect. The orbits, paranasal sinuses and mastoid ai r cells are normal. IMPRESSION: 1. Mild scattered white matter hypoattenuation consistent with chronic small vessel ischemic disease. No acute intracranial process. Reviewed, dictated and finalized at location B. L RESTORER IMPRESSION: 1. Mild scattered white matter hypoattenuation consistent with chronic small ve ssel ischemic disease. No acute intracranial process.
--- NOTE | ~2022-10-09 | XR_ITS ---
EXAMINATION: XR small bowel follow through DATE: 10/11/2022 10:23 INDICATION: Anemia. TECHNIQUE: Oral contrast was administered, and a time course of radiographs of the abdomen was obtain ed. Fluoroscopy of the small bowel was performed. Fluoroscopy exposure time was 0.1 minutes. The tota l number of images was 8. COMPARISON: CT abdomen and pelvis 09/25/2022 FINDINGS: There are no dilated loops of bowel. There is no mass or stricture. The terminal ileum is normal. Tra nsit time from the stomach to proximal colon was approximately 15 minutes. IMPRESSION: 1. Normal small bowel series. Reviewed, dictated and finalized at location A. INE ERECTOR
--- NOTE | ~2022-10-09 | XR_ITS ---
EXAMINATION: XR chest 1V INDICATION: Transient alteration of awareness TECHNIQUE: AP view of the chest is obtained. COMPARISON: 09/10/2019 FINDINGS: The lungs are free of acute opacities. No pleural effusion or pneumothorax. The cardiomedia stinal silhouette is normal. Osteoarthritis is noted in the shoulders. IMPRESSION: 1. No acute cardiopulmonary abnormality. Reviewed, dictated and finalized at location F. ASSEMBLER
--- NOTE | 2022-10-09 12:21 | ECG_ITS ---
Measurements Intervals [place] Rate: 83 P: 27 ID: [id number] QRS: 20 QRSD: 89 T: 65 QT: 370 QTc: 436 Interpretive Statements SINUS RHYTHM NONSPECIFIC T-WAVE ABNORMALITY- ANT/HIGH LAT LEADS BORDERLINE ECG COMPARED TO ECG 07/31/2022 11:12:00 NO SIGNIFICANT CHANGES Electronically Signed On 10-09-2022 12:46:45 [employer] by Héctor Castillo D.O.
[2022-10-09 12:40] LABS: Basophils Absolute Auto 0.1 K/mm3 (0.0-0.1); Eosinophils Absolute Auto 0.1 K/mm3 (0-0.3); Eosinophils Percent Auto 0.5 % (0-4.4); Hematocrit 31.1 % (37.0-47.0); Hemoglobin 9.9 g/dL (12.0-15.0); Immature Granulocyte Absolute 0.05 K/mm3 (0.00-0.031); Immature Granulocyte Percent A 0.5 % (0-0.5); Lymphocytes Absolute Auto 2.19 K/mm3 (0.9-3.2); Lymphocytes Percent Auto 20.9 % (18.3-44.2); Mean Corpuscular HGB Conc 31.8 g/dl (32-36); Mean Corpuscular Hemoglobin 31.2 pg (26-34); Mean Corpuscular Volume 98.1 fl (80-100); Mean Platelet Volume 10.8 fl (7.4-10.4); Monocytes Absolute Auto 0.5 K/mm3 (0.1-0.6); Neutrophils Absolute Auto 7.6 K/mm3 (1.3-6.7); Neutrophils Percent Auto 72.1 % (45.5-73.1); Platelet Count Result 287 k/mm3 (150-375); Red Blood Count 3.17 M/mm3 (4.2-5.4); Red Cell Distribution Width 12.8 % (11.5-14.5); White Blood Count 10.5 K/mm3 (4.5-10.0)
[2022-10-09 12:57] LABS: Alanine Aminotransferase 17 U/L (6-35); Albumin Level 4.3 g/dL (3.5-5.1); Alkaline Phosphatase 79 U/L (38-126); Anion Gap 13 mmol/L (8-16); Aspartate Amino Transferase 32 U/L (14-36); Bilirubin,Total 0.4 mg/dL (0.2-1.3); Blood Urea Nitrogen 32 mg/dL (7-17); Calcium 8.9 mg/dL (8.4-10.2); Carbon Dioxide 24 mmol/L (22-30); Chloride 104 mmol/L (98-107); Estimated CRCL calculation 65 ml/min; Estimated Glomerular Filt Rate > 60; Glucose 117 mg/dL (65-110); Potassium 3.6 mmol/L (3.4-5.0); Sodium 141 mmol/L (137-145)
--- NOTE | 2022-10-09 13:53 | ED.SYNCOPE ---
HPI - Syncope General Chief Complaint: Syncope Stated Complaint: passing out Time Seen by Provider: 10/09/22 13:27 Source: patient and family Limitations: no limitations History of Present Illness HPI narrative: Patient is 77 years old white female lives alone, came to the emergency room because of multiple syncope in the last 3 days. Patient reported having 3 syncope 3 days ago, twice yesterday and once today. Patient reported sudden onset of weird feeling, queasy feeling while walking down some time while in bed followed by loss of consciousness for unknown duration. Patient denies biting her tongue or urinary incontinence. Patient denied having similar symptoms in the past. She denies any fever, chills, nausea, vomiting, chest pain, shortness of breath, back pain, urinary symptoms or GI symptoms. Currently patient feeling okay, denying any symptoms. History of urinary tract infection 1 to 2 weeks ago, finished a course of antibiotic unknown name. Related Data Home Medications Medication Instructions Recorded Confirmed sertraline 25 mg tablet 50 mg PO DAILY 07/09/22 10/09/22 ibuprofen 400 mg tablet 400 mg PO Q6H PRN Pain 07/31/22 10/09/22 multivitamin 1 tablet PO DAILY 07/31/22 10/09/22 Allergies Allergy/AdvReac Type Severity Reaction Status Date / Time Sulfa (Sulfonamide Allergy Intermediate Rash Verified 10/09/22 11:44 Antibiotics) bee venom protein (honey bee) Allergy Unknown Hives Verified 10/09/22 11:44 sulfite Allergy Unknown Unknown Verified 10/09/22 11:44 PMFSH Past Medical History Medical History Anxiety Arthritis of left knee Chronic cough Hepatitis C antibody test negative (06/28/21) Hypothyroidism Mixed hyperlipidemia Obesity (BMI 30.0-34.9) Sleep apnea Torn meniscus 2016 Surgical History Surgical History History of tubal ligation Family History Family History Mother Carcinoma of colon Grandparent Carcinoma of colon Father Family history of Alzheimer's disease Other Family history of elevated blood lipids Social History Social History Social History: patient lives at home alone. She is independent in her daily activities. She designates her daughter, Henny, as her surrogate decision maker. She is a full code. Smoking status: Never smoker Alcohol use details: 1-2 drinks/year on holidays/special occasions Substance use: never Spiritual care concerns: No Agree to blood products: Yes Exam Narrative: General appearance: Well-developed, well-nourished Skin: pale Head: Normocephalic, nontraumatic Eyes: Clear conjunctiva ENT: Oropharynx normal, ears normal, nose normal Neck: Supple, nontender Chest and respiratory: Airway patent, no respiratory distress, no accessory muscle use Heart: Regular rate/rhythm Abdomen: Soft, nontender, no organomegaly, quiet bowel sounds, rectal exam showed dark red blood, guaiac positive Vascular: Normal peripheral pulses, normal capillary refill. Musculoskeletal: Normal range of motion, nontender back Neurologic: Alert and oriented ?3, RETURNER is normal as tested, no gross motor deficit Course Course Emergency Course: Work-up today showed anemia secondary to GI bleed. Patient been on meloxicam for a while, plus ibuprofen as needed. Which I believe high likely the underlying cause of her GI bleed. Patient denies any vomiting or abdominal pain. Consultations Consultation #1: jonah Date: 10/09/22 Time: 15:19 Vital Signs Vital signs
[2022-10-09 14:35] LABS: Appearance Urine Slightly Cloudy (Clear); Bilirubin Urine Negative (Negative); Blood Urine Negative (Negative); Color Urine Yellow (Yellow); Glucose Urine UA Negative (Negative); Ketones Urine Negative (Negative); Leukocyte Esterase Ur 3+ LEU/UL (Negative); Nitrate Urine Negative (Negative); Protein Urine Negative (Negative); Specific Grav Ur 1.025 (1.001-1.035); Urobilinogen Urine 0.2 mg/dL (<2.0); pH Urine 5.5 (5.0-9.0)
[2022-10-09 14:42] LABS: INR 2.1; Prothrombin Time 22.5 Seconds (11.1-14.7)
[2022-10-09 14:43] LABS: Partial Thromboplastin Time 30.3 SECONDS (22.3-36.8)
[2022-10-09 14:57] LABS: Troponin I < 0.012 ng/mL (0.000-0.034)
[2022-10-09 14:59] LABS: Bacteria Urine Trace /hpf; Calcium Oxalate Crystals Urine Present /hpf; Mucus Urine Few /lpf; Squamous Epithelial Cell Urine Occasional /hpf (Few); WBC Urine 51-75 /hpf
[2022-10-09 15:03] LABS: Barbiturate Screen Urine Negative (Negative); Benzodiazepines Screen Urine Negative (Negative)
[2022-10-09 15:04] LABS: Add Urine Microscopic? YES
[2022-10-09 15:28] LABS: Amphetamine Screen Urine Negative (Negative); Cannabinoid Screen Urine Negative (Negative); Cocaine Screen Urine Negative (Negative); Opiate Screen Urine Negative (Negative); Phencyclidine Screen Urine Negative (Negative)
[2022-10-09 15:46] LABS: Methadone Screen Urine Negative (Negative)
[2022-10-09] MEDS: PANTOPRAZOLE SODIUM IV 40 MG VIAL IV PUSH ×2 (15:50→23:43)
--- NOTE | 2022-10-09 16:00 | PM.IMHP ---
H&P: HPI History of Present Illness Date/Time: 10/09/22 16:00 Chief Complaint: Syncope. Narrative: This is a very pleasant 77-year-old female with hyperlipidemia, hypothyroidism, and untreated sleep apnea who presented to the emergency department for evaluation after a syncopal episode. She seems to suffer from mild memory impairment and some of the following history is supplemented via a review of her electronic medical records. About 4 days ago she got up in the morning and walked to the kitchen at which time she became extremely lightheaded and dizzy. She immediately sat down on the ground as she thought she was going to pass out and she woke up of lying on the ground. She was able to get herself up however she has continued to have similar symptoms the last few days including several other syncopal episodes, or so she supposes as after she sits herself down she finds herself waking up in a supine position. She has also been feeling nauseated with poor appetite and frequent belching. With further questioning she does report noticing dark stools the last few days and she reports having an episode of emesis 2 days ago which looked like coffee-grounds. She had a right knee replacement on 08/11/2022 and she was on Xarelto for a period of time for DVT prophylaxis but it does not sound as though she is taking that any longer. At home she typically takes Aleve or ibuprofen for aches or pains but certainly not on a day-to-day basis. Blood pressures were stable on arrival to the ER. Her hemoglobin is 4.5 grams lower than what it was 2 weeks ago and her stool was found to be Hemoccult positive on rectal exam. She is being admitted in this setting for further treatment, close monitoring, and GI consultation. Review of Systems Review of Systems: Twelve systems were reviewed. No fever, chills, or sweats. She is fatigued and has been mildly short of breath with exertion. She denies chest pain and pleuritic pain. She does not have any abdominal or epigastric pain. She denies GERD symptoms. He has had perhaps some mild burning with urination but nothing significant. Except as documented, all other systems were reviewed and are negative. [facility] Past Medical History Medical History (Updated 10/09/22 @ 22:52 by Ina Jackman PA-C) Anxiety Arthritis of left knee Hepatitis C antibody test negative (06/28/21) Hypothyroidism Memory loss Mixed hyperlipidemia Obesity (BMI 30.0-34.9) Sleep apnea Untreated for 6 years. Torn meniscus 2016 Surgical History Surgical History (Updated 10/09/22 @ 22:49 by Ina Jackman PA-C) History of colonoscopy with polypectomy History of right knee joint replacement (07/2022) History of tubal ligation Family History Family History Mother Carcinoma of colon Grandparent Carcinoma of colon Father Family history of Alzheimer's disease Other Family history of elevated blood lipids Social History Social History (Updated 10/09/22 @ 22:50 by Ina Jackman PA-C) Social History: Surrogate medical decision maker: Henny Liang, daughter. Code status: Smoking status: Never smoker Alcohol intake: never Alcohol use details: 1-2 drinks/year on holidays/special occasions Substance use: never Substance use type: does not use Lack of Transportation: No Lack of Food: Never True Current Housing: I Have Housing Concerned About Future Housing: No Difficulty Paying Gas/Electric Bills: No Difficulty Paying for Meds: No Currently Unemployed: No Education: Associate Degree Difficulty w/ Childcare or Family Care: No Additional living arrangements comments: The patient lives in her own home. Additional occupation/education comments: Retired from working for the [employer]. Spiritual care concerns: No Agree to blood products: Yes Meds Home Medications and Allergies Home Medications Medication Instruc
--- NOTE | 2022-10-09 16:40 | WPDGICN ---
Assessment and Plan Assessment and plan (1) Anemia: Code(s): D64.9 - Anemia, unspecified Status: Acute Assessment and Plan: Patient presented emergency room with anemia associated with occult blood in stool suspicious for GI blood loss. She gives a history of coffee-ground emesis but also blood in her stool. Plan to monitor hemoglobin. IV fluid rehydration suggested. We will start her on pantoprazole plan colonoscopy an EGD tomorrow after preparation today. (2) GI bleed: Code(s): K92.2 - Gastrointestinal hemorrhage, unspecified Status: Acute Assessment and Plan: GI bleeding evident by history of coffee-ground emesis. Occasional bright red blood per rectum although small in amount Hemoccult positive stool confirmed today. Both colonoscopy an EGD will be performed after preparation. (3) Syncope: Code(s): R55 - Syncope and collapse Status: Acute Assessment and Plan: Syncope potentially from GI blood loss. Plan to monitor closely. She likely would benefit from IV rehydration. Monitor hemoglobin as it appears to have decline from her baseline. Transfuse only if hemoglobin falls further. (4) Status post total right knee replacement: Code(s): Z96.651 - Presence of right artificial knee joint Status: Acute Assessment and Plan: Patient had knee replacement may benefit from antibiotics prior to procedure. (5) Family history of colon cancer in mother: Code(s): Z80.0 - Family history of malignant neoplasm of digestive organs Status: Acute Assessment and Plan: Patient's mother and grandmother have had colon cancer. Screening colonoscopy advised at 5 year intervals. (6) UTI (urinary tract infection): Code(s): N39.0 - Urinary tract infection, site not specified Status: Acute Assessment and Plan: Urine culture pending. Appears as though she may have UTI which potentially could have contributed to her syncope. Will defer therapy to primary care service. (7) Coagulopathy: Code(s): D68.9 - Coagulation defect, unspecified Status: Acute Assessment and Plan: Elevated PT and INR may contribute to bleeding. Would repeat studies are advised. She might benefit from vitamin K and analysis if this remains elevated. GI Consult Note Consult date/time: 10/09/22 16:40 Reason for consult: Syncope, occult blood in stool, anemia. HPI: Wendi Colon is a 77 year old female I am asked to see because of possible GI blood loss. Patient states that for the last 3 days has had several syncopal episodes. For this reason she presented the emergency room. She was found to have Hemoccult-positive stools. Her hemoglobin 9.5 has dropped from baseline of 14. Patient reports yesterday she had emesis of coffee-ground like material. She does report occasional blood in her stool. Very minimal bowel movements have occurred. She has not eaten much lately last several days. Family history is significant her mother had colon cancer x2. Her grandmother had colon cancer. Patient has had screening colonoscopies however her last colonoscopy was 7 years ago she was never identified if having any particular pathology. Review of Systems Review of Systems: Review of systems noncontributory. [facility] Past Medical History Medical History Anxiety Arthritis of left knee Chronic cough Hepatitis C antibody test negative (06/28/21) Hypothyroidism Mixed hyperlipidemia Obesity (BMI 30.0-34.9) Sleep apnea Torn meniscus 2016 Surgical History Surgical History History of tubal ligation Family History Family History Mother Carcinoma of colon Grandparent Carcinoma of colon Father Family history of Alzheimer's disease Other Family history of elevated bloo
--- NOTE | 2022-10-09 17:58 | ADMGEN ---
This patient, Wendi Colon, was admitted to [facility] Surg Room 302-01. Patient/family oriented to hospital policies and general routines including ID bracelet, bed and alarms, visiting hours, pain management, procedures, bathroom and other care routines, personal items, smoking policy, room service/diet, and visiting hours. Information on how to activate the Rapid Response Team has been discussed. Patient/Family are encouraged to report perceived risks to care and to ask questions if they do not understand what they are told or what they should do.
[2022-10-09] MEDS: SODIUM CHLORIDE 0.9% IV 1,000 ML 125 ML IV CONT (18:44)
[2022-10-09] MEDS: PEG (High)/E-LYTE SOLN 4,000 ML BTL 4000 ML PO (18:44)
[2022-10-09] MEDS: SODIUM CHLORIDE 0.9% IV 1,000 ML 80 ML IV CONT (23:43)
[2022-10-10] VITALS (13 sets, daily range): BP systolic 109–148; BP diastolic 38–69; PULSE 78–99; RESP 16–22; TEMP 36.1–36.4; O2SAT 96–100; BMI 32.3
[2022-10-10 00:15] LABS: Glucose Point of Care 138 mg/dl (65-105)
[2022-10-10 00:42] LABS: Hematocrit 26.9 % (37.0-47.0); Hemoglobin 8.6 g/dL (12.0-15.0)
[2022-10-10 06:35] LABS: Hematocrit 26.1 % (37.0-47.0); Hemoglobin 8.4 g/dL (12.0-15.0)
[2022-10-10 06:36] LABS: Basophils Absolute Auto 0.1 K/mm3 (0.0-0.1); Basophils Percent Auto 1.1 % (0.2-1.2); Eosinophils Absolute Auto 0.1 K/mm3 (0-0.3); Eosinophils Percent Auto 1.3 % (0-4.4); Hematocrit 25.6 % (37.0-47.0); Hemoglobin 8.2 g/dL (12.0-15.0); Immature Granulocyte Absolute 0.04 K/mm3 (0.00-0.031); Immature Granulocyte Percent A 0.5 % (0-0.5); Lymphocytes Absolute Auto 2.29 K/mm3 (0.9-3.2); Lymphocytes Percent Auto 30.5 % (18.3-44.2); Mean Corpuscular Hemoglobin 30.8 pg (26-34); Mean Corpuscular Volume 96.2 fl (80-100); Monocytes Absolute Auto 0.5 K/mm3 (0.1-0.6); Monocytes Percent Auto 6.9 % (2.6-8.5); Neutrophils Absolute Auto 4.5 K/mm3 (1.3-6.7); Neutrophils Percent Auto 59.7 % (45.5-73.1); Platelet Count Result 221 k/mm3 (150-375); Red Blood Count 2.66 M/mm3 (4.2-5.4); Red Cell Distribution Width 12.8 % (11.5-14.5); White Blood Count 7.5 K/mm3 (4.5-10.0)
[2022-10-10 06:46] LABS: INR 1.3
[2022-10-10] MEDS: SODIUM CHLORIDE 0.9% IV 1,000 ML 80 ML IV CONT (07:40)
[2022-10-10] MEDS: PANTOPRAZOLE SODIUM IV 40 MG VIAL IV PUSH (08:43)
[2022-10-10] MEDS: PERFLUTREN LIPID MICROSPHERES 1.5 ML VIAL DILUTED TO 10 ML TOTAL VOLUME IV PUSH (11:30)
--- NOTE | 2022-10-10 12:33 | WPDANESEPPF ---
Anes - Initial Pre Proc Eval Procedure: Operation Date: 10/10/22 15:45 Proposed Procedures p Esophagogastroduodenoscopy & Colonoscopy - River Sawyer MD Date/Time: 10/10/22 12:33 Surgeon: Suzi Jones PA-C Pre Op Diagnosis: Syncope,Anemia,GI Bleed Patient Data Age: 77 Gender: F Height: 1.65 m Weight: 91.5 kg Last Vital Signs Temp 36.4 C L 10/10/22 08:00 Pulse 81 10/10/22 12:00 Resp 18 10/10/22 08:00 BP 133/50 L 10/10/22 08:00 Pulse Ox 100 10/10/22 08:00 O2 Del Method Room Air 10/09/22 20:00 Allergies Allergy/AdvReac Type Severity Reaction Status Date / Time Sulfa (Sulfonamide Allergy Intermediate Rash Verified 10/10/22 14:19 Antibiotics) bee venom protein (honey bee) Allergy Unknown Hives Verified 10/10/22 14:19 sulfite Allergy Unknown Unknown Verified 10/10/22 14:19 Home Medications Medication Instructions Recorded Confirmed Type meloxicam 15 mg tablet 15 mg PO DAILY #90 tabs 03/14/22 10/10/22 Rx sertraline 25 mg tablet 50 mg PO DAILY 07/09/22 10/10/22 History ibuprofen 400 mg tablet 400 mg PO Q6H PRN Pain 07/31/22 10/10/22 History multivitamin 1 tablet PO DAILY 07/31/22 10/10/22 History oxycodone 5 mg tablet 5 mg PO Q4-6H PRN pain #42 tabs 08/13/22 10/10/22 Rx ondansetron 4 mg disintegrating 4 mg PO Q8H PRN nausea and 08/14/22 10/10/22 Rx tablet vomiting #30 tabs donepezil 5 mg tablet 5 mg PO DAILY 10/09/22 10/10/22 History levothyroxine 75 mcg tablet 75 mcg PO DAILY 10/09/22 10/10/22 History simvastatin 10 mg tablet 10 mg PO DAILY #90 tabs 10/09/22 10/10/22 Rx Laboratory Tests 10/09/22 10/09/22 10/09/22 12:32 12:33 12:33 WBC 10.5 K/mm3 H K/mm3 (4.5-10.0) RBC 3.17 M/mm3 L M/mm3 (4.2-5.4) Hgb 9.9 g/dL L D g/dL (12.0-15.0) Hct 31.1 % L % (37.0-47.0) MCV 98.1 fl fl (80-100) MCH 31.2 pg pg (26-34) MCHC 31.8 g/dl L g/dl (32-36) RDW 12.8 % % (11.5-14.5) Plt Count 287 k/mm3 k/mm3 (150-375) MPV 10.8 fl H fl (7.4-10.4) Immature Gran % (Auto) 0.5 % % (0-0.5) Neut % (Auto) 72.1 % % (45.5-73.1) Lymph % (Auto) 20.9 % % (18.3-44.2) [place] % (Auto) 5.0 % % (2.6-8.5) Eos % (Auto) 0.5 % % (0-4.4) Baso % (Auto) 1.0 % % (0.2-1.2) Lymph # (Auto) 2.19 K/mm3 K/mm3 (0.9-3.2) [place] # (Auto) 0.5 K/mm3 K/mm3 (0.1-0.6) Eos # (Auto) 0.1 K/mm3 K/mm3 (0-0.3) Baso # (Auto) 0.1 K/mm3 K/mm3 (0.0-0.1) Abs Immat Gran (auto) 0.05 K/mm3 H K/mm3 (0.00-0.031) Absolute Neuts (auto) 7.6 K/mm3 H K/mm3 (1.3-6.7) Absolute Nucleated RBC 0.0 K/mm3 K/mm3 (0.0-0.012) Nucleated RBC % 0.0 % % (0.0-0.2) PT INR APTT Sodium 141 mmol/L mmol/L (137-145) Potassium 3.6 mmol/L mmol/L (3.4-5.0) Chloride 104 mmol/L mmol/L (98-107) Carbon Dioxide 24 mmol/L mmol/L (22-30) Anion Gap 13 mmol/L mmol/L (8-16) BUN 32 mg/dL H D mg/dL (7-17) Creatinine 0.70 mg/dL mg/dL (0.7-1.0) Estim Creat Clear Calc 65 ml/min ml/min Estimated GFR > 60 (59 - ) Glucose 117 mg/dL H mg/dL (65-110) POC Capillary Glucose Calcium 8.9 mg/dL mg/dL (8.4-10.2) Total Bilirubin 0.4 mg/dL mg/dL (0.2-1.3) AST 32 U/L U/L (14-36) ALT 17 U/L U/L (6-35) Alkaline Phosphatase 79 U/L U/L (38-126) Troponin I < 0.012 ng/mL ng/mL (0.000-0.034) Total Protein 7.0 g/dL g/dL (6.3-8.2) Albumin 4.3 g/dL g/dL (3.5-5.1) Urine Color Urine Appearance Urine pH Ur Specific [place] Urine Protein Urine Glucose (UA) Urine Ketones Ur Blood (Man)
[2022-10-10] MEDS: LACTATED RINGERS 1,000 ML 150 ML IV CONT (14:21)
--- NOTE | 2022-10-10 15:36 | SUR.OPER ---
EGD START TIME 1517. EGD END TIME 1335. COLONOSCOPY START TIME 1541.
--- NOTE | 2022-10-10 16:01 | PM.IMPN ---
Progress Note: A&P Assessment and Plan (1) Syncope: Code(s): R55 - Syncope and collapse Status: Acute Assessment and Plan: The patient presented to the emergency department for evaluation of multiple syncopal episodes. Suspect secondary to blood loss anemia from reported GI bleeding Head CT showed chronic small-vessel ischemic disease with no acute finding Carotid Doppler with <50% stenosis of the bilateral internal carotid arteries Echocardiogram unremarkable with normal EF, no significant valvular disease Monitor on telemetry See plan below (2) GI bleed: Code(s): K92.2 - Gastrointestinal hemorrhage, unspecified Status: Acute Assessment and Plan: Patient presented with complaints of bright red blood per rectum and coffee-ground emesis. 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 No obvious source of bleeding, however occult blood may have been due to hemorrhoids Proceed with small-bowel follow-through per GI recommendations Continue pantoprazole 40 mg daily. Anti-reflux measures initiated. Avoid NSAIDs (3) Anemia: Code(s): D64.9 - Anemia, unspecified Status: Acute Assessment and Plan: Patient with acute, symptomatic anemia Hemoglobin has declined a total of 6 points this month No obvious GI source as described above despite patient reported GI bleeding Will proceed with iron studies, B12, and folate Patient may require Hematology evaluation which could likely be completed outpatient. Will await further workup (4) Abnormal urinalysis: Code(s): R82.90 - Unspecified abnormal findings in urine Status: Acute Assessment and Plan: UA slightly abnormal with 3+ leuk esterase and 51-75 white blood cells Continue IV ceftriaxone Urine culture is pending Will discontinue IV fluids as patient has tolerating p.o. intak (5) Hypothyroidism: Qualifiers: Hypothyroidism type: unspecified Qualified Code(s): E03.9 - Hypothyroidism, unspecified Code(s): E03.9 - Hypothyroidism, unspecified Status: Chronic Assessment and Plan: Continue levothyroxine (6) Memory loss: Code(s): R41.3 - Other amnesia Status: Chronic Assessment and Plan: No acute issues this hospitalization Subjective Date/time seen: 10/10/22 16:01 Interval history: Date of service: 10/10/22 Wendi Colon is a 77 year old female with a history of hypothyroidism, hyperlipidemia, BISI, and memory loss who is seen in follow up for syncope secondary to anemia. She is feeling okay today. She reports bright red blood in her stool for 2 days prior to admission with some clots and also notes 2 episodes of coffee-ground emesis. She denies abdominal pain or epigastric pain. She does endorse taking ibuprofen a couple times a week. She states she does not take this for pain but does takes this when she is feeling ?blah.? She then endorses some mild bilateral knee pain. She denies fever, chills, nausea, vomiting, shortness breath, cough, chest pain, dizziness, lightheadedness. She had an episode of loose stool today but denies any bleeding. She has been p.o. for procedure. Review of Systems Review of Systems: All systems reviewed & are unremarkable except as noted in HPI and below Exam Narrative: General: Well-nourished, well-appearing 77-year-old female, sitting up in bed, comfortable, NARD Neuro: awake, alert, answering all questions appropriately, speech clear, no focal neuro deficits noted HEENMT: normocephalic, atraumatic, EOMI, sclerae anicteric, moist oral mucosa Respiratory: clear to auscultation bilaterally, nonlabored breathing Cardio: regular rate, regular rhythm with S1-S2 Abdomen: nondisten
[2022-10-10 18:12] LABS: Iron 54 ug/dL (37-170)
[2022-10-10 18:21] LABS: Percent Iron Saturation 19 % (20-50)
[2022-10-10 19:08] LABS: Folic Acid > 20.0 ng/mL (2.76->20)
--- NOTE | 2022-10-10 22:57 | ECHO_ITS ---
Patient Info Name: Wendi Colon Age: 77 years : 1945 Gender: Female Ht: 65 in Wt: 194 lbs BSA: 2.04 m2 HR: 95 bpm BP: 146 / 42 mmHg Heart Rhythm: Sinus Rhythm Technical Quality: Fair Exam Date: 10/10/2022 11:05 AM [facility] Patient Status: Outpatient Admit Date: 10/09/2022 Staff Ordering Physician: Ina Jackman PA-C Green Hide Inspector: Lorene Medina RDCS Attending Provider: Suzi Jones PA-C Referring Physician: Gasper ALLEN; Exam Type: CA echo dop color flow w con Study Info Indications - syncope Complete two-dimensional, color flow and Doppler transthoracic echocardiogram is performed with contrast to opacify the left ventricle and to improve the deliniation of the left ventricle endocardial borders. Summary 1. Left ventricular systolic function is normal, estimated at >70%. 2. There is mildly increased left ventricular wall thickness. 3. Right ventricular systolic function is normal. 4. Left atrial chamber dimension is moderately enlarged. 5. There is trace mitral valve regurgitation. 6. There is mild tricuspid valve regurgitation. Left Ventricle Left ventricular chamber dimension is normal. Left ventricular systolic function is normal, estimated at >70%. There is mildly increased left ventricular wall thickness. Right Ventricle Right ventricular chamber dimension is normal. Right ventricular systolic function is normal. Left Atria Left atrial chamber dimension is moderately enlarged. Right Atria Right atrial chamber dimension is normal. Atrial Septum Intact interatrial septum visualized by color flow imaging. Aortic Valve The aortic valve is not well visualized. There is no aortic valve stenosis. There is no aortic valve regurgitation. Pulmonic Valve The pulmonic valve is not well visualized. Mitral Valve The mitral valve has normal leaflets. There is no mitral valve stenosis. There is trace mitral valve regurgitation. Tricuspid Valve The tricuspid valve leaflets are normal. There is mild tricuspid valve regurgitation. Pericardium/Pleural There is no pericardial effusion. Aorta The aortic root size at the sinus of Valsalva is not well visualized. Left Ventricular Outflow Tract Name Value Normal LVOT 2D LVOT Diameter 1.98 cm LVOT Doppler LVOT Peak Gradient 6 mmHg LVOT Mean Gradient 3 mmHg LVOT VTI 24.89 cm LVOT VTI/AV VTI Ratio 0.86 LVOT Stroke Volume 76.81 ml LVOT CO 15.43 l/min LVOT CI 7.56 L/min/m2 Pulmonic Valve Name Value Normal PV Doppler PV Peak Gradient 3 mmHg Mitral Valve
[2022-10-11] VITALS: PULSE 71
[2022-10-11 05:51] VITALS: BP 120/62; PULSE 81; RESP 16; TEMP 36.7; O2SAT 99
[2022-10-11 07:56] LABS: Basophils Absolute Auto 0.1 K/mm3 (0.0-0.1); Basophils Percent Auto 1.5 % (0.2-1.2); Eosinophils Absolute Auto 0.2 K/mm3 (0-0.3); Eosinophils Percent Auto 3.7 % (0-4.4); Hematocrit 25.9 % (37.0-47.0); Hemoglobin 8.4 g/dL (12.0-15.0); Immature Granulocyte Absolute 0.02 K/mm3 (0.00-0.031); Immature Granulocyte Percent A 0.3 % (0-0.5); Lymphocytes Absolute Auto 2.06 K/mm3 (0.9-3.2); Lymphocytes Percent Auto 34.3 % (18.3-44.2); Mean Corpuscular HGB Conc 32.4 g/dl (32-36); Mean Corpuscular Hemoglobin 31.6 pg (26-34); Mean Corpuscular Volume 97.4 fl (80-100); Mean Platelet Volume 11.7 fl (7.4-10.4); Monocytes Absolute Auto 0.5 K/mm3 (0.1-0.6); Monocytes Percent Auto 8.2 % (2.6-8.5); Neutrophils Absolute Auto 3.1 K/mm3 (1.3-6.7); Platelet Count Result 207 k/mm3 (150-375); Red Blood Count 2.66 M/mm3 (4.2-5.4)
[2022-10-11 08:00] VITALS: BP 127/66; PULSE 79; RESP 16; TEMP 35.9; O2SAT 100
[2022-10-11 08:19] LABS: Anion Gap 14 mmol/L (8-16); Blood Urea Nitrogen 13 mg/dL (7-17); Calcium 8.3 mg/dL (8.4-10.2); Carbon Dioxide 24 mmol/L (22-30); Chloride 106 mmol/L (98-107); Estimated CRCL calculation 76 ml/min; Estimated Glomerular Filt Rate > 60; Glucose 93 mg/dL (65-110); Potassium 3.1 mmol/L (3.4-5.0); Sodium 144 mmol/L (137-145)
[2022-10-11 08:38] VITALS: BP 121/53; BP 132/60; PULSE 76; PULSE 84; RESP 16; TEMP 35.9; O2SAT 100
[2022-10-11] MEDS: POTASSIUM CHLORIDE 20 MEQ TABLET 40 MEQ PO (09:07)
[2022-10-11 10:12] LABS: Lactate Dehydrogenase 128 U/L (120-246)
[2022-10-11 12:00] VITALS: PULSE 73
--- NOTE | 2022-10-11 12:43 | PM.DS ---
DS: Admitting Diagnosis Discharge Date 10/11/2022 Admitting Diagnosis Syncope DS: Discharge Diagnosis Discharge Diagnosis (1) Syncope: Code(s): R55 - Syncope and collapse Status: Acute Assessment and Plan: The patient presented to the emergency department for evaluation of multiple syncopal episodes. Suspect secondary to blood loss anemia from reported GI bleeding. See plan below Head CT showed chronic small-vessel ischemic disease with no acute finding Carotid Doppler with <50% stenosis of the bilateral internal carotid arteries Echocardiogram unremarkable with normal EF, no significant valvular disease Monitored on telemetry during admission and patient was in normal sinus rhythm (2) GI bleed: Code(s): K92.2 - Gastrointestinal hemorrhage, unspecified Status: Acute Assessment and Plan: Patient presented with complaints of bright red blood per rectum and coffee-ground emesis. 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 No obvious source of bleeding, however occult blood may have been due to hemorrhoids Completed small-bowel follow-through on 10/11 which was normal Continue pantoprazole 40 mg daily. Anti-reflux measures initiated. Stop meloxicam. Avoid NSAIDs (3) Anemia: Code(s): D64.9 - Anemia, unspecified Status: Acute Assessment and Plan: Patient with acute, symptomatic anemia Hemoglobin declined a total of 6 points on presentation from labs 2 weeks prior No obvious GI source identified as described above despite patient reports of GI bleeding Iron panel, B12, folate within normal limits Normal LDH. Haptoglobin pending. No additional findings to suggest hemolysis Outpatient Hematology follow-up Repeat H&H in 1 week to ensure remaining stable (4) Abnormal urinalysis: Code(s): R82.90 - Unspecified abnormal findings in urine Status: Acute Assessment and Plan: UA slightly abnormal with 3+ leuk esterase and 51-75 white blood cells Started on IV ceftriaxone which was discontinued following negative urine culture (5) Hypothyroidism: Qualifiers: Hypothyroidism type: unspecified Qualified Code(s): E03.9 - Hypothyroidism, unspecified Code(s): E03.9 - Hypothyroidism, unspecified Status: Chronic Assessment and Plan: Continue levothyroxine (6) Memory loss: Code(s): R41.3 - Other amnesia Status: Chronic Assessment and Plan: No acute issues. Continue donepezil DS: Summary Hospital Course Hospital Course: Date of admission: 10/09/2022 Date of discharge: 10/11/2022 Wendi Colon is a 77 year old female with a history of hypothyroidism, hyperlipidemia, BISI, and memory loss who presented to the emergency department on 10/09/2022 with complaints of several syncopal episodes while at home. Fortunately, she could tell with her symptoms were coming on and was able to lay down before falling or losing consciousness. She also complained of blood in stools and coffee-ground emesis. On presentation to the ED, her vital signs were stable, she was afebrile white blood cell count 10.5, hemoglobin 9.9, CT of the head with no acute intracranial findings and CXR with no acute cardiopulmonary findings. She was admitted to the hospitalist service for further evaluation and was seen in consultation by Gastroenterology. Workup completed for syncope including head CT, carotid Dopplers, orthostatic vital signs, and echocardiogram unremarkable. Syncope felt to be secondary to anemia. She underwent EGD and colonoscopy for evaluation of GI bleeding. EGD revealed findings consistent with Glez's esophagus and patient will begin Protonix 40 mg daily. She will need repeat EGD in 3 years.
[2022-10-17 06:32] LABS: Haptoglobin 78 mg/dL (43-212)
== END 2022-10-11 14:40 | disposition home or self-care (01) ==
LOC: ANHED 15:17 → ANH3MEDSUR 18:31
PROVIDERS: Internal Medicine Gastroenterology; Admitting Provider Chiropractor; Emergency Provider Emergency Medicine; PCP Family Medicine; Visit Provider Physician Assistant
PROC: 0DJ08ZZ Inspection of Upper Intestinal Tract, Via Natural or Artificial Opening Endoscopic (ICD-10-PCS; CPT 43235; principal; 2022-10-10 15:45)
DX: R55 Syncope and collapse (principal); K22.70 Barrett's esophagus without dysplasia; K57.30 Diverticulosis of large intestine without perforation or abscess without bleeding; D64.9 Anemia, unspecified; D68.9 Coagulation defect, unspecified; K64.8 Other hemorrhoids; R19.5 Other fecal abnormalities; R94.31 Abnormal electrocardiogram [ECG] [EKG]; R82.90 Unspecified abnormal findings in urine; R41.9 Unspecified symptoms and signs involving cognitive functions and awareness; I36.1 Nonrheumatic tricuspid (valve) insufficiency; E03.9 Hypothyroidism, unspecified; E78.2 Mixed hyperlipidemia; R41.3 Other amnesia; E66.9 Obesity, unspecified; Z68.33 Body mass index [BMI] 33.0-33.9, adult; G47.30 Sleep apnea, unspecified; R90.82 White matter disease, unspecified; R63.0 Anorexia; F10.90 Alcohol use, unspecified, uncomplicated; Z87.440 Personal history of urinary (tract) infections; Z79.1 Long term (current) use of non-steroidal anti-inflammatories (NSAID); Z79.891 Long term (current) use of opiate analgesic; Z79.899 Other long term (current) drug therapy; Z80.0 Family history of malignant neoplasm of digestive organs
CPT/HCPCS: 43239; 45378; 36415; 70450; 71045; 74250; 80048; 80053; 80307; 81001; 82607; 82728; 82746; 82948; 83010; 83540; 83550; 83615; 84484; 85014; 85018; 85025; 85610; 85730; 86850; 86900; 86901; 87086; 87088; 88305; 93005; 93880; 96361; 96374; 96376; 99285; A9270; C8929; C9113; G0378; J0696; J2704; J7030; J7120; Q9957

== ENCOUNTER 2022-11-07 10:33 | Emergency (ER) | payer MEDICARE, MEDICAID, SELFPAY ==
[2022-11-07 11:30] VITALS: BP 145/52; PULSE 75; RESP 18; TEMP 36.7; O2SAT 100
--- NOTE | 2022-11-07 12:27 | ED.SKABFB ---
HPI - Skin/Abscess/Foreign Bdy General Chief complaint: Skin/Abscess/Foreign Body Stated complaint: Toe Pain/Swelling Time Seen by Provider: 11/07/22 12:27 Source: patient, RN notes reviewed and old records reviewed Mode of arrival: ambulatory Limitations: no limitations History of Present Illness HPI narrative: 77-year-old female presents to [facility] with complaints of left great toe redness with mild swelling for the past 5 days. Patient reports that redness started above nailbed and has extended to proximal toe with tenderness and swelling increasing. Patient denies any known injury to her left foot or toe, circulations sensation and mobility is intact, denies any fevers. complaint: other (swelling and redness to left great toe) Onset (ago): day(s) (5) Tetanus up to date: yes Severity scale (1-10): 3 Related Data Home Medications Medication Instructions Recorded Confirmed multivitamin 1 tablet PO DAILY 07/31/22 11/13/22 donepezil 5 mg tablet 5 mg PO DAILY 10/09/22 11/13/22 levothyroxine 75 mcg tablet 75 mcg PO DAILY 10/09/22 11/13/22 acetaminophen 650 mg 650 mg PO Q12H 11/05/22 11/13/22 tablet,extended release (Tylenol Arthritis Pain) Allergies Allergy/AdvReac Type Severity Reaction Status Date / Time Sulfa (Sulfonamide Allergy Intermediate Rash Verified 11/13/22 14:18 Antibiotics) bee venom protein (honey bee) Allergy Unknown Hives Verified 11/13/22 14:18 sulfite Allergy Unknown Unknown Verified 11/13/22 14:18 Review of Systems Review of Systems: CONSTITUTIONAL: Denies fever, chills, or sweats. CARDIOVASCULAR: Denies chest pain, palpitations, or edema. RESPIRATORY: Denies cough or dyspnea. GASTROINTESTINAL: Denies abdominal pain, nausea, vomiting SKIN: Reports redness and swelling left great toe Denies purulent drainage, vesicles, bullae, numbness, pain beyond proportion MUSCULOSKELETAL: Denies myalgia. NEUROLOGIC: Denies headache, numbness All systems reviewed & are unremarkable except as noted in HPI and below PMFSH Past Medical History Medical History (Updated 11/13/22 @ 15:15 by Zeferino Melendez MD) Anxiety Arthritis of left knee Hepatitis C antibody test negative (06/28/21) Hypothyroidism Memory loss Mixed hyperlipidemia Obesity (BMI 30.0-34.9) Sleep apnea Untreated for 6 years. Torn meniscus 2016 Surgical History Surgical History History of colonoscopy with polypectomy History of tubal ligation Status post total right knee replacement 08/12/2022 Family History Family History Mother Carcinoma of colon Grandparent Carcinoma of colon Father Family history of Alzheimer's disease Other Family history of elevated blood lipids Social History Social History Social History: Surrogate medical decision maker: Henny Liang, daughter. Code status: Smoking status: Never smoker Alcohol intake: never Alcohol use details: 1-2 drinks/year on holidays/special occasions Substance use: never Substance use type: does not use Lack of Transportation: No Lack of Food: Never True Current Housing: I Have Housing Concerned About Future Housing: No Difficulty Paying Gas/Electric Bills: No Difficulty Paying for Meds: No Currently Unemployed: No Education: Associate Degree Difficulty w/ Childcare or Family Care: No Additional living arrangements comments: The patient lives in her own home. Additional occupation/education comments: Retired from working for the [employer]. Spiritual care concerns: No Agree to blood products: Yes Comments At time of signature, agree with nursing past medical, surgical, social and family history. There is no relevant family history pertinent to the presenting complaint Exam Narrative: GENERAL: Well-appearing, well-nourished, and in no acute dist
== END 2022-11-07 12:45 | disposition home or self-care (01) ==
PROVIDERS: Emergency Provider Registered Nurse; PCP Family Medicine
DX: L03.032 Cellulitis of left toe (principal); E03.9 Hypothyroidism, unspecified; E78.2 Mixed hyperlipidemia; M17.12 Unilateral primary osteoarthritis, left knee; Z96.651 Presence of right artificial knee joint
CPT/HCPCS: 99213; G0463

== ENCOUNTER 2022-12-09 09:18 | Outpatient (CLI) | payer MEDICARE, MEDICAID, SELFPAY ==
[2022-12-09 10:11] LABS: Basophils Absolute Auto 0.1 K/mm3 (0.0-0.1); Basophils Percent Auto 1.1 % (0.2-1.2); Eosinophils Absolute Auto 0.1 K/mm3 (0-0.3); Eosinophils Percent Auto 1.3 % (0-4.4); Hematocrit 44.4 % (37.0-47.0); Hemoglobin 13.6 g/dL (12.0-15.0); Immature Granulocyte Absolute 0.03 K/mm3 (0.00-0.031); Immature Granulocyte Percent A 0.4 % (0-0.5); Lymphocytes Absolute Auto 1.76 K/mm3 (0.9-3.2); Lymphocytes Percent Auto 22.1 % (18.3-44.2); Mean Corpuscular HGB Conc 30.6 g/dl (32-36); Mean Corpuscular Hemoglobin 29.1 pg (26-34); Mean Corpuscular Volume 94.9 fl (80-100); Mean Platelet Volume 11.3 fl (7.4-10.4); Monocytes Absolute Auto 0.5 K/mm3 (0.1-0.6); Monocytes Percent Auto 6.5 % (2.6-8.5); Neutrophils Absolute Auto 5.5 K/mm3 (1.3-6.7); Neutrophils Percent Auto 68.6 % (45.5-73.1); Platelet Count Result 298 k/mm3 (150-375); Red Blood Count 4.68 M/mm3 (4.2-5.4); Red Cell Distribution Width 13.7 % (11.5-14.5)
[2022-12-09 10:17] LABS: Urine Cotinine NEGATIVE
[2022-12-09 10:22] LABS: Albumin Level 4.7 g/dL (3.5-5.1); Estimated Glomerular Filt Rate > 60; Glucose 99 mg/dL (65-110)
[2022-12-09 10:25] LABS: Hemoglobin A1C 5.6 % (<5.7)
== END 2022-12-09 09:19 | disposition home or self-care (01) ==
PROVIDERS: PCP Family Medicine; Visit Provider Orthopaedic Surgery
DX: M17.12 Unilateral primary osteoarthritis, left knee (principal); Z01.818 Encounter for other preprocedural examination
CPT/HCPCS: 80307; 82040; 82565; 82947; 83036; 85025; 87081

== ENCOUNTER 2022-12-17 13:44 | Outpatient (CLI) | payer MEDICARE, MEDICAID, SELFPAY ==
[2022-12-17 13:59] LABS: Basophils Absolute Auto 0.1 K/mm3 (0.0-0.1); Basophils Percent Auto 0.7 % (0.2-1.2); Eosinophils Absolute Auto 0.1 K/mm3 (0-0.3); Eosinophils Percent Auto 0.9 % (0-4.4); Hematocrit 41.8 % (37.0-47.0); Hemoglobin 13.1 g/dL (12.0-15.0); Immature Granulocyte Absolute 0.05 K/mm3 (0.00-0.031); Immature Granulocyte Percent A 0.4 % (0-0.5); Lymphocytes Absolute Auto 1.99 K/mm3 (0.9-3.2); Mean Corpuscular HGB Conc 31.3 g/dl (32-36); Mean Corpuscular Volume 92.5 fl (80-100); Mean Platelet Volume 11.1 fl (7.4-10.4); Monocytes Absolute Auto 0.8 K/mm3 (0.1-0.6); Monocytes Percent Auto 7.2 % (2.6-8.5); Neutrophils Absolute Auto 8.6 K/mm3 (1.3-6.7); Neutrophils Percent Auto 73.8 % (45.5-73.1); Platelet Count Result 293 k/mm3 (150-375); Red Blood Count 4.52 M/mm3 (4.2-5.4); Red Cell Distribution Width 13.7 % (11.5-14.5); White Blood Count 11.7 K/mm3 (4.5-10.0)
[2022-12-17 14:13] LABS: CRP 1.3 mg/dL (<1.0); Uric Acid 6.2 mg/dL (2.5-7.5)
[2022-12-17 14:16] LABS: Rheumatoid Factor < 8.6 IU/ML (<12)
[2022-12-17 14:27] LABS: Erythrocyte Sedimentation Rate 27 mm/hr (0-20)
[2022-12-20 10:41] LABS: Anti Nuclear Antibody Titer 1:40 (Negative)
== END 2022-12-17 13:45 | disposition home or self-care (01) ==
PROVIDERS: PCP Family Medicine; Visit Provider Nurse Practitioner
DX: L03.032 Cellulitis of left toe (principal); M06.9 Rheumatoid arthritis, unspecified
CPT/HCPCS: 36415; 84550; 85025; 85652; 86038; 86039; 86140; 86430

== ENCOUNTER 2023-01-01 11:51 | Outpatient (CLI) | payer MEDICARE, MEDICAID, SELFPAY ==
[2023-01-01 19:40] LABS: Kit Draw Collected
== END 2023-01-01 11:52 | disposition home or self-care (01) ==
LOC: ANHGOSHLAB 11:53
PROVIDERS: PCP Family Medicine; Visit Provider Nurse Practitioner
DX: E87.6 Hypokalemia (principal); D72.829 Elevated white blood cell count, unspecified; R76.8 Other specified abnormal immunological findings in serum
CPT/HCPCS: 36415

== ENCOUNTER 2023-03-12 11:25 | Outpatient (CLI) | payer MEDICARE, MEDICAID, SELFPAY ==
--- NOTE | ~2023-03-12 | XR_ITS ---
Clinical Indication: Encounter for follow-up examination PA and lateral views of the chest: Comparison: 10/09/2022 Findings: The lungs are clear, without evidence of focal consolidation or pleural effusion. Cardiome diastinal silhouette is within normal limits. Bones and soft tissues are unremarkable. Impression: Normal chest. Reviewed, dictated and finalized at location . Impression: Normal chest.
--- NOTE | 2023-03-12 11:43 | ECG_ITS ---
Measurements Intervals Lucile Rate: 71 P: 58 OH: 145 QRS: 37 QRSD: 89 T: 40 QT: 391 QTc: 426 Interpretive Statements SINUS RHYTHM COMPARED TO ECG 10/09/2022 12:29:26 NO SIGNIFICANT CHANGES Electronically Signed On 03-12-2023 15:58:20 CDT by Kathleen Bermudez M.D.
== END 2023-03-12 11:26 | disposition home or self-care (01) ==
PROVIDERS: PCP Family Medicine; Visit Provider Family Medicine
DX: E78.2 Mixed hyperlipidemia (principal); G47.30 Sleep apnea, unspecified; E66.9 Obesity, unspecified
CPT/HCPCS: 71046; 93005

== ENCOUNTER 2023-03-21 11:26 | Outpatient (CLI) | payer MEDICARE, MEDICAID, SELFPAY ==
[2023-03-21 13:49] LABS: Urine Cotinine NEGATIVE
== END 2023-03-21 11:27 | disposition home or self-care (01) ==
PROVIDERS: PCP Family Medicine; Visit Provider Orthopaedic Surgery
DX: M17.12 Unilateral primary osteoarthritis, left knee (principal); Z01.818 Encounter for other preprocedural examination
CPT/HCPCS: 80307; 86850; 86900; 86901; 87081

== ENCOUNTER 2023-04-01 15:28 | Observation (INO) | payer MEDICARE, MEDICAID, SELFPAY ==
[2023-03-21 12:16] VITALS: BP 149/71; PULSE 70; RESP 16; TEMP 36.4; O2SAT 100; BMI 30.9
--- NOTE | 2023-03-21 12:32 | PC.NURSE ---
Report to the Outpatient Waiting Room, entrance under the green pavilion located off [facility], at time __6:00AM on date _03/31/23 . Planned Procedure Time: _7:30AM . Time changes happen often and if your time is changed the preop area will call you the afternoon before. - You and your visitor will be asked to self-screen and do not enter if you have any COVID symptoms. - A mask is optional within the hospital at this time. Patients may have clear liquids (water, carbonated beverages, clear teas, apple juice) until 3 hours prior to surgery with a maximum of 20 ounces. - No food from midnight until time of surgery Take the following medications with a SIP of water the morning of surgery: _SERTRALINE, LEVOTHYROXINE DO NOT STOP ANY OF YOUR OTHER PRESCRIPTION MEDICATIONS PRIOR TO SURGERY ?EXCEPT THE FOLLOWING Medications to discontinue per physician __HOLD ALL VITAMINS/SUPPLEMENTS 3 DAYS PRE-OP Date to take last dose____03/27/23 Please no make-up, nail [place], hairspray, perfume, deodorant, or body powder the day of surgery. No jewelry (including any body piercings) or valuables the day of surgery, leave them at home. Please take a shower or bath the night before, or the morning of, surgery with an antibacterial soap. Wear comfortable, loose fitting clothing. Children are encouraged to wear pajamas. - Jewelry must be removed prior to entering the operating room. Rings and piercings that are not removed may be cut off. - The hospital will not accept responsibility for valuables. - Please leave all valuables, including medications, at home the day of surgery. If you are going home after surgery, a licensed route cdl driver must drive you home. - NO public transportation without another adult if you receive anesthesia. - We recommend that an adult stay with you for 24 hours following discharge. - We also recommend that you do not drive, make important decision, drink alcoholic beverages, or take any drugs that were not prescribed by your health care provider for at least 24 hours after your discharge time. Follow any additional instructions given to you from your surgeon. If you or anyone in your household have experienced Covid symptoms in the past week, please notify your surgeon or the nurse liaison at the phone number below for possible testing. Telephone instructions given to __PATIENT and asked if any additional questions and then verbalized understanding. Patient advised to call surgeon office or pre surgery nurse liaison [phone] if any additional questions.
[2023-03-31] VITALS (15 sets, daily range): BP systolic 111–177; BP diastolic 42–64; PULSE 72–89; RESP 12–22; TEMP 36.1–36.7; O2SAT 91–100
[2023-03-31] MEDS: ACETAMINOPHEN 500 MG TABLET 1000 MG PO (06:25)
[2023-03-31] MEDS: LACTATED RINGERS 1,000 ML 30 ML IV CONT ×2 (06:38→10:11)
--- NOTE | 2023-03-31 06:53 | WPDANESEPPF ---
Anes - Initial Pre Proc Eval Procedure: Operation Date: 03/31/23 07:30 Proposed Procedures p Left Total Knee Arthroplasty - Zeferino Melendez MD Date/Time: 03/31/23 06:53 Surgeon: Zeferino eMlendez MD Pre Op Diagnosis: OA left knee Patient Data Age: 78 Gender: F Height: 1.64 m Weight: 84.3 kg Last Vital Signs Temp 36.7 C 03/31/23 06:39 Pulse 72 03/31/23 06:39 Resp 16 03/31/23 06:39 BP 177/60 H 03/31/23 06:39 Pulse Ox 100 03/31/23 06:39 O2 Del Method Room Air 03/31/23 06:39 Allergies Allergy/AdvReac Type Severity Reaction Status Date / Time Sulfa (Sulfonamide Allergy Intermediate Rash Verified 03/31/23 06:15 Antibiotics) bee venom protein (honey bee) Allergy Unknown Hives Verified 03/31/23 06:15 Home Medications Medication Instructions Recorded Confirmed Type multivitamin 1 tablet PO DAILY 07/31/22 03/31/23 History levothyroxine 75 mcg tablet 75 mcg PO DAILY 10/09/22 03/31/23 History simvastatin 10 mg tablet 10 mg PO DAILY #90 tabs 10/09/22 03/31/23 Rx donepezil 5 mg tablet 5 mg PO DAILY #90 tabs 01/13/23 03/31/23 Rx naproxen 500 mg tablet 500 mg PO BID #60 tabs 01/28/23 03/31/23 Rx pantoprazole 40 mg tablet,delayed 40 mg PO DAILY 03/21/23 03/31/23 History release sertraline 50 mg tablet 50 mg PO QAM 03/21/23 03/31/23 History sucralfate 1 gram tablet 1 g PO DAILY 03/21/23 03/31/23 History rivaroxaban 10 mg tablet (Xarelto) 10 mg PO DAILY PE prophylaxis s/p 03/26/23 03/26/23 Rx joint replacement surgery 14 days #14 tabs Patient hx anesthesia problems: none Family hx anesthesia problems: none Results Review: All pre-operative results and documents have been reviewed as part of the pre-operative evaluation. [facility] [place] Past Medical History Medical History Anxiety Arthritis of left knee Hepatitis C antibody test negative (06/28/21) Hypothyroidism Memory loss Mixed hyperlipidemia Obesity (BMI 30.0-34.9) Sleep apnea Untreated for 6 years. Torn meniscus 2016 Surgical History Surgical History History of colonoscopy with polypectomy History of tubal ligation Status post total right knee replacement 08/12/2022 Family History Family History Mother Carcinoma of colon Grandparent Carcinoma of colon Father Family history of Alzheimer's disease Other Family history of elevated blood lipids Social History Social History Social History: Surrogate medical decision maker: Henny Liang, daughter. Code status: Caffeine-coffee daily Smoking status: Never smoker Second hand tobacco smoke exposure: No Additional smoking assessment comments: PT DENIES ALL FORMS OF TOBACCO USE Alcohol intake: current Alcohol use details: 1/MONTH Substance use: never Substance use type: does not use Lack of Transportation: No Lack of Food: Never True Current Housing: I Have Housing Concerned About Future Housing: No Difficulty Paying Gas/Electric Bills: No Difficulty Paying for Meds: No Currently Unemployed: No Education: Associate Degree Difficulty w/ Childcare or Family Care: No Living arrangements: alone Additional living arrangements comments: The patient lives in her own home. Occupation/Education: retired Additional occupation/education comments: Retired from working for the [employer]. Spiritual care concerns: No Agree to blood products: Yes Anes - Eval Final PreProcedure Day of Procedure 03/31/23 06:53 Patient weight: obese Heart: regular rate and rhythm Lungs: clear to auscultation Airway: Mallampati scale class II Neurological: alert and oriented Last oral intake: >/= 8 hours ASA classification: III Emergent: no Anesthetic plan: proceed Anesthesia type and monitoring: general LMA an
[2023-03-31] MEDS: TRANEXAMIC ACID 1,000MG/ISO100 1,000 MG/100 ML BAG 200 MG IVPB (07:15)
--- NOTE | 2023-03-31 07:19 | WPDHPUPDATE1 ---
History and Physical Update Update Date/Time: 03/31/23 07:19 History and Physical has been reviewed, including an updated exam of the patient. There are NO changes in the patient's condition. Risks, benefits, and alternatives have been discussed and questions answered. Patient agrees to proceed with procedure.
--- NOTE | 2023-03-31 07:30 | WPDANESPNB ---
Anes - Peripheral Nerve Block Date/Time: 03/31/23 07:30 I have discussed with the patient/family/POA the placement of a peripheral nerve block for post-operative pain management, including associated risks, benefits, complications, and side effects. Alternative methods of post-operative analgesia were detailed. Questions were solicited and answers provided to the satisfaction of the patient/family/POA. Time-Out: A pre-procedural Time-Out was completed immediately before starting the procedure and confirmed: Patient Identification, Site, Procedure, Patient Position and the Availability of Requisite Equipment. Clinical Indications: Acute post-operative pain management requested by the operative surgeon. Nerve Block Insertion Note Anes-nerve block: adductor canal left Patient position: supine Skin prep: chlorhexidine Needle: 22 gauge, stimulating, insulated echogenic needle. Needle length: 80 mm Technique: ultrasound Injectate: bupivacaine 0.5% with epi 5 mcg/ml (20cc no epi) Observations: tolerated well Complications: none Procedure start time:: 724 Procedure end time:: 729
[2023-03-31] MEDS: ceFAZolin 2 GM/D5W 50 ML 2 GM/50 ML BAG IVPB ×2 (07:33→17:06)
[2023-03-31] MEDS: GENTAMICIN BONE CEMENT REFOBACIN 1 EACH TOPICAL (09:01)
[2023-03-31] MEDS: ceFAZolin SODIUM 1 GM VIAL IV PUSH (09:31)
[2023-03-31] MEDS: fentaNYL CITRATE INJ (*CRX) 100 MCG/2 ML VIAL 25 MCG IV PUSH ×4 (10:44→11:29)
--- NOTE | 2023-03-31 11:46 | ADMGEN ---
This patient, Wendi Colon, was admitted to 2 Medical Room 259-01. Patient/family oriented to hospital policies and general routines including ID bracelet, bed and alarms, visiting hours, pain management, procedures, bathroom and other care routines, personal items, smoking policy, room service/diet, and visiting hours. Information on how to activate the Rapid Response Team has been discussed. Patient/Family are encouraged to report perceived risks to care and to ask questions if they do not understand what they are told or what they should do.
--- NOTE | 2023-03-31 12:34 | PM.IMCN ---
Assessment and Plan Assessment and plan (1) Status post left knee replacement: Code(s): Z96.652 - Presence of left artificial knee joint Status: Acute Assessment and Plan: PT and OT per Dr. Melendez DVT as per Dr. Melendez. The patient currently has SCD Postop care per Dr. Melendez Pain management per Dr. Melendez. the patient has oxycodone (2) Mixed hyperlipidemia: Code(s): E78.2 - Mixed hyperlipidemia Status: Acute Assessment and Plan: Continue with Zocor (3) Hypothyroidism: Qualifiers: Hypothyroidism type: unspecified Qualified Code(s): E03.9 - Hypothyroidism, unspecified Code(s): E03.9 - Hypothyroidism, unspecified Status: Chronic Assessment and Plan: Continue with levothyroxine (4) Memory loss: Code(s): R41.3 - Other amnesia Status: Chronic Assessment and Plan: Continue with Aricept (5) Sleep apnea: Code(s): G47.30 - Sleep apnea, unspecified Status: Acute Assessment and Plan: The patient has not used a CPAP machine in 6 years. (6) Anxiety: Code(s): F41.9 - Anxiety disorder, unspecified Status: Acute Assessment and Plan: Continue with Zoloft (7) Chronic GERD: Code(s): K21.9 - Gastro-esophageal reflux disease without esophagitis Status: Acute Assessment and Plan: Continue with Carafate and pantoprazole HPI Data of Consult Consult date: 03/31/23 Requesting Physician: Zeferino Melendez MD Primary Care Provider: Nikkie Finch DO Consult Narrative Narrative: Wendi Colon is a 78 year old female who has severe arthritis to her left knee. The patient had a right total knee on 08/12/2022 and had recovered well from that knee. The patient has been suffering with severe arthritis at the left knee for approximately 1 year. The patient stated that she has tried injections as well as physical therapy at home and NSAIDs. The patient has been living with moderate amount moderate amount of discomfort on a daily basis. The patient chose to undergo a left total knee arthroplasty per Dr. Melendez today. See operative note for left total knee replacement per Dr. Melendez. she had general and local anesthesia. Estimated blood loss was noted to be 150. No immediate complications were noted and the patient is stable. The patient does have a history of obstructive sleep apnea but does not wear CPAP machine. The patient does not typically wear oxygen at home however she is currently wearing oxygen at 2 L per nasal cannula. The patient stated she is not in any discomfort she just feels tired at this time. The hospitalist group has been consulted for medical management on the date of service of 03/31/2023. Review of Systems Review of Systems: All systems reviewed & are unremarkable except as noted in HPI and below Constitutional: Constitutional: Reports as per HPI and Reports no additional constitutional complaints Eyes: Eyes: Reports as per HPI and Reports no additional eye complaints ENT: Reports system reviewed and no additional complaints, except as documented and Reports Normal hearing present Cardiovascular: Cardiovascular: Reports no additional cardiovascular complaints Respiratory: Respiratory: Reports no additional respiratory complaints and Reports no additional respiratory complaints Gastrointestinal: Gastrointestinal: Reports as per HPI and Reports no additional gastrointestinal complaints Musculoskeletal: Musculoskeletal: Reports no additional musculoskeletal complaints Integumentary/Breasts: Skin/Breast: Reports system reviewed and no additional complaints, except as docu and Reports as per HPI Neurologic: Reports system reviewed and no additional complaints, except as documented, Reports as per HPI and Reports Normal hearing present Psychiatric: Psychiatric: Reports no additional psychiatric complaints and Reports as per HPI Endocrine: Endocrine: Reports no additional endocri
--- NOTE | 2023-03-31 12:57 | P.OP_ITS ---
Procedure Note - Detailed Date of Procedure 03/31/23 Pre-op Diagnosis OA left knee Post-op Diagnosis Same Procedure Performed left total knee replacement Surgeon Zeferino Melendez MD Tobacco Stemmer Machine Hannah Small Anesthesia General and Regional Description of Procedure The patient was identified and proper site identified. In the preop holding area the anesthesia team performed a left-sided sub sartorial block after which the patient was taken to the operating room and transferred to the OR table positioning supine taking care to pad the torso and extremities. After general anesthetic induction and intubation, a nonsterile tourniquet was placed high on the left thigh. The left lower extremity was prepped and draped in the usual sterile fashion. The extremity was exsanguinated and with the knee flexed tourniquet was inflated to 300 mmHg remaining up for approximately 51 minutes. An anterior midline incision was made and a modified medial parapatellar approach was used. Infra and suprapatellar fat pads were excised. Patella was resected leaving 15 mm thickness and prepared for the size 31 round three peg component. Using the intramedullary guide the distal femur was cut in the proper orientation for the size 65 femoral component. Using the extramedullary guide the tibia was cut perpendicular to the long axis protecting collateral ligaments and popliteal structures. It was sized to a 67. Flexion and extension gaps were balanced. Trial reduction was undertaken and the weight- bearing line was noted to passed through the center of the joint. Proximal tibia was drilled and punched in the proper orientation for the real component. Trial components were removed. The bone surfaces were washed with pulsatile lavage and dried. The real components were cemented simultaneously. The knee was held in extension and the patella held clamped until the cement had cured. Excess cement was removed from the joint. After trialing it was determined that the 10 mm insert gave full range of motion from 0-120 degrees of flexion and the patella tracked in the femoral groove with no lift-off. After final lavage the joint the real 10 insert was placed and secured with a locking bar. A Betadine and saline wash was placed into the wound and allowed to sit for approximately 3 minutes and then evacuated. Periarticular tissues were infiltrated with 60 cc of the arthroplasty solution. Surgicel powder was applied into the wound during the closure. The extensor mechanism was repaired with #2 Vicryl suture and 0 looped PDS suture. Subcu was reapproximated with 3-0 Monocryl, 2-0 Quill and tissue adhesive for the skin. A sterile dressing was applied. She tolerated the procedure well, was awakened and extubated, transferred to the bed and was taken to recovery area in stable condition. There were no known intraoperative complications. Perioperative antibiotics were administered. Estimated Blood Loss -150.0 Tourniquet Time 51 Drains No Packing No Pathology None sent Complications No immediate complications Condition Stable Disposition PACU [facility] Billing Surgery - Charge Forward: Surgery Billing ([id number])
[2023-03-31] MEDS: DONEPEZIL HCL 5 MG TABLET PO (13:27)
[2023-03-31] MEDS: oxyCODONE/ACETAMINOPHEN (*CRX) 5-325 MG TABLET 1 TABLET PO ×3 (13:28→20:13)
[2023-03-31] MEDS: SERTRALINE HCL 50 MG TABLET PO (13:28)
[2023-03-31] MEDS: ONDANSETRON INJ 4 MG/2 ML VIAL IV PUSH ×2 (14:02→20:16)
[2023-03-31] MEDS: SENNA/DOCUSATE SODIUM TABLET 2 TAB PO (17:06)
--- NOTE | ~2023-04-01 | XR_ITS ---
EXAMINATION: [id number] DATE: 03/31/2023 10:28 INDICATION: Total left knee arthroplasty. Postop. TECHNIQUE: 2 views of left knee were obtained. COMPARISON: None. FINDINGS: There is a total left knee arthroplasty with patellar resurfacing in near-anatomic alignmen t. No fracture. There is gas in the knee joint and soft tissues, consistent with recent surgery. IMPRESSION: 1. Total left knee arthroplasty in near-anatomic alignment. Reviewed, dictated and finalized at location A.
[2023-04-01] MEDS: oxyCODONE/ACETAMINOPHEN (*CRX) 5-325 MG TABLET 1 TABLET PO ×6 (00:06→20:53)
[2023-04-01] MEDS: ceFAZolin 2 GM/D5W 50 ML 2 GM/50 ML BAG IVPB ×2 (00:06→09:16)
[2023-04-01 00:18] VITALS: BP 156/61; PULSE 82; RESP 20; TEMP 36.3; O2SAT 96
[2023-04-01 04:38] VITALS: BP 143/56; PULSE 83; RESP 20; TEMP 36.7; O2SAT 96
[2023-04-01] MEDS: LEVOTHYROXINE SODIUM 75 MCG TABLET PO (05:33)
--- NOTE | 2023-04-01 07:10 | WPDANESPN ---
Anes - Prog Note Post-Op Date/Time: 04/01/23 07:10 Cardiovascular status: normal Respiratory status: normal Airway patency: baseline Mental status: baseline Post-Op hydration status: normal Vital Signs: Last Vital Signs Temp 98.1 F 04/01/23 04:38 Pulse 83 04/01/23 04:38 Resp 20 04/01/23 04:38 BP 143/56 H 04/01/23 04:38 Pulse Ox 96 04/01/23 04:38 O2 Del Method Room Air 03/31/23 20:00 O2 Flow Rate 2 03/31/23 12:04 Pain Score (VAS): 7 I/O: Intake & Output 03/31/23 03/31/23 04/01/23 15:59 23:59 07:59 Intake Total 890 1040 390 Balance 890 1040 390 Post-procedural complaints: none Patient Feedback: Patient satisfied with anesthetic care.
--- NOTE | 2023-04-01 07:13 | PCWOUND ---
Received nurse driven consult for pressure by accident. Spoke with night RN who states it was put in by error. Patient does not have pressure ulcers noted.
[2023-04-01] MEDS: ONDANSETRON INJ 4 MG/2 ML VIAL IV PUSH ×2 (09:12→17:54)
[2023-04-01] MEDS: polyethylene glycoL 3350 17 GM POWD.PACK PO (09:17)
[2023-04-01] MEDS: SENNA/DOCUSATE SODIUM TABLET 2 TAB PO ×2 (09:17→17:51)
[2023-04-01] MEDS: PANTOPRAZOLE 40 MG TABLET PO (09:35)
[2023-04-01] MEDS: SUCRALFATE 1 GM TABLET PO (09:35)
[2023-04-01] MEDS: DONEPEZIL HCL 5 MG TABLET PO (09:35)
[2023-04-01] MEDS: SERTRALINE HCL 50 MG TABLET PO (09:35)
[2023-04-01] MEDS: MULTIVITAMINS THERAPEUTIC TAB (*BKC) 1 TABLET PO (09:35)
[2023-04-01] MEDS: SIMVASTATIN 10 MG TABLET PO (09:35)
--- NOTE | 2023-04-01 10:18 | PM.PNORT ---
Progress Note: A&P Assessment and Plan (1) Status post left knee replacement: Code(s): Z96.652 - Presence of left artificial knee joint Status: Acute Assessment and Plan: 78-year-old female postop day one left total knee replacement. Slow progress in therapy yesterday. Plan to continue today and possibly be able to discharge home tomorrow. Have asked discharge planning to evaluate appropriateness for home health versus even a rehab setting. Appreciate hospitalist service input. Time Spent With Patient Time with patient: 15 - 25 minutes Subjective Subjective Date/Time Seen: 04/01/23 10:18 Interval history: This document created with [id number] technology and is subject to procedures rn irregularities. 78-year-old female postop day one left total knee replacement. Has been experiencing some nausea overnight. Is doing a bit better this morning. Review of Systems Constitutional: Constitutional: Denies anorexia Eyes: Eyes: Denies irritation and Denies loss of vision ENT: Reports Normal hearing present Cardiovascular: Cardiovascular: Denies chest pain and Denies dyspnea on exertion Respiratory: Respiratory: Denies cough and Denies dyspnea on exertion Gastrointestinal: Gastrointestinal: Denies abdominal pain, Denies bloating and Reports nausea Genitourinary: Genitourinary: Denies dysuria Musculoskeletal: Musculoskeletal: Reports arthralgias ( Left knee) Integumentary/Breasts: Skin/Breast: Denies skin ulcer Neurologic: Reports Normal hearing present and Denies loss of vision Hematologic/Lymphatic: Hematologic/Lymphatic: Denies easy bleeding Exam Const: General: cooperative, no acute distress and alert Nutritional Appearance: other Orientation/consciousness: patient oriented x3 Limitations: no limitations HENMT: Head: normal to inspection Chest: Chest palpation & inspection: normal inspection of the chest Resp: Effort & Inspection: normal respiratory effort and able to speak in complete sentences GI: Inspection: other Neuro: General: patient oriented x3 Cognition (Neuro): normal cognition Speech: normal speech Gait exam (Neuro): Other gait observations present Extrem: General: normal to inspection and other Other: Exam of left knee incision shows that it is dry. Minimal swelling and no bruising. Grossly motor and sensory function intact left lower extremity. Psych: Appearance: grossly normal Mental Status: mental status grossly normal Objective Data Vital Signs Vital Signs: Vital Signs - 24 hr 03/31/23 10:19 03/31/23 10:25 03/31/23 10:40 Temperature Pulse Rate 85 85 82 Respiratory Rate 19 22 H 17 Blood Pressure 116/43 L 120/51 L 117/50 L Pulse Oximetry 94 94 91 Oxygen Delivery Simple Face Mask Simple Face Mask Room Air Oxygen Flow Rate 8 8 03/31/23 10:55 03/31/23 11:10 03/31/23 11:25 Temperature Pulse Rate 88 87 86 Respiratory Rate 12 14 14 Blood Pressure 139/59 L 137/56 L 141/63 H Pulse Oximetry 93 94 95 Oxygen Delivery Nasal Cannula Nasal Cannula Nasal Cannula Oxygen Flow Rate 2 2 2 03/31/23 11:33 03/31/23 11:48 03/31/23 12:04 Temperature Pulse Rate 89 88 Respiratory Rate 18 18 Blood Pressure 137/64 139/59 L Pulse Oximetry 97 97 97 Oxygen Delivery Nasal Cannula Oxygen Flow Rate 2 03/31/23 12:18 03/31/23 13:29 03/31/23 13:18 Temperature 96.9 F L Pulse Rate 88 85 Respiratory Rate 18 18 Blood Pressure 140/56 L 123/52 L Pulse Oximetry 99 98 Oxygen Delivery Room Air Oxygen Flow Rate 03/31/23 20:11 03/31/23 20:00 04/01/23 00:18 Temperature 97.6 F 97.4 F L Pulse Rate 83 83 82 Respiratory Rate 18 18 20 Blood Pressure 160/56 H 156/61 H Pulse Oximetry 99 99 96 Oxygen Delivery Room Air Oxygen Flow Rate 04/01/23 04:38 Temperature 98.1 F Pulse Rate 83 Respiratory Rate 20 Blood Pressure 143/56 H Pulse Oximetry 96 Oxygen Delivery Oxygen Flow Rate Intake/Output Intake/Output:
[2023-04-01 10:33] VITALS: BP 146/51; PULSE 77; RESP 18; TEMP 36.5; O2SAT 100
[2023-04-01 13:03] LABS: Glucose Point of Care 137 mg/dl (65-105)
--- NOTE | 2023-04-01 15:15 | PM.IMPN ---
Progress Note: A&P Assessment and Plan (1) Status post left knee replacement: Code(s): Z96.652 - Presence of left artificial knee joint Status: Acute Assessment and Plan: POD 1 PT and OT DVT as per Dr. Melendez. Continue SCD for now Postop care per Dr. Melendez Pain management on board Antiemetics on board (2) Mixed hyperlipidemia: Code(s): E78.2 - Mixed hyperlipidemia Status: Acute Assessment and Plan: Cholesterol 186, Triglycerides 194, LDL 103, HDL 52 Increase Simvastatin to 20mg PO daily LFTs stable (3) Hypothyroidism: Qualifiers: Hypothyroidism type: unspecified Qualified Code(s): E03.9 - Hypothyroidism, unspecified Code(s): E03.9 - Hypothyroidism, unspecified Status: Chronic Assessment and Plan: TSH 3.49, T4 0.9 Continue with levothyroxine (4) Memory loss: Code(s): R41.3 - Other amnesia Status: Chronic Assessment and Plan: Continue with Aricept Stable and chronic trend mental status (5) Sleep apnea: Qualifiers: Sleep apnea type: unspecified type Qualified Code(s): G47.30 - Sleep apnea, unspecified Code(s): G47.30 - Sleep apnea, unspecified Status: Acute Assessment and Plan: History of CPAP use Not currently using CPAP Trend respiratory status (6) Anxiety: Code(s): F41.9 - Anxiety disorder, unspecified Status: Acute Assessment and Plan: Continue with Zoloft (7) Chronic GERD: Code(s): K21.9 - Gastro-esophageal reflux disease without esophagitis Status: Acute Assessment and Plan: Continue with Carafate and pantoprazole Plan Nausea and vomiting, added scopolamine for further control Time Spent With Patient Time: 42 minutes Time with patient: Greater than 35 minutes Subjective Date/time seen: 04/01/23 151 Interval history: 04/01/23 151 Patient is doing well. She is having some nausea and vomiting. She denies any chest pain, shortness of breath, diarrhea, constipation. She does have pain of a 7/10. She has been able to eat some stuff this afternoon. She is currently sitting in the chair. She is stable at this time. Will add a scopolamine. 03/31/23 1234 Wendi Colon is a 78 year old female who has severe arthritis to her left knee.? The patient had a right total knee on 08/12/2022 and had recovered well from that knee.? The patient has been suffering with severe arthritis at the left knee for approximately 1 year.? The patient stated that she has tried injections as well as physical therapy at home and NSAIDs.? The patient has been living with moderate amount moderate amount of discomfort on a daily basis.? The patient chose to undergo a left total knee arthroplasty per Dr. Melendez today.? See operative note for left total knee replacement per Dr. Melendez. she had general and local anesthesia.? Estimated blood loss was noted to be 150.? No immediate complications were noted and the patient is stable.? The patient does have a history of obstructive sleep apnea but does not wear CPAP machine.? The patient does not typically wear oxygen at home however she is currently wearing oxygen at 2 L per nasal cannula.? The patient stated she is not in any discomfort she just feels tired at this time.? The hospitalist group has been consulted for medical management on the date of service of 03/31/2023. Review of Systems Review of Systems: All systems reviewed & are unremarkable except as noted in HPI and below Exam Narrative: General: well-nourished, well-appearing 78-year-old female, sitting up in bed, comfortable, NARD Neuro: awake, alert and oriented x4, speech clear, no focal neuro deficits noted HEENMT: normocephalic, atraumatic, EOMI, sclerae anicteric, moist oral mucosa Respiratory: Clear to auscultation bilaterally without crackles, rhonchi or
[2023-04-01] MEDS: SCOPOLAMINE 1.5 MG PATCH TRANSDERM (15:41)
[2023-04-01 16:18] VITALS: BP 139/54; PULSE 74; RESP 18; TEMP 36.7; O2SAT 97
[2023-04-01 19:56] VITALS: BP 146/49; PULSE 90; RESP 18; TEMP 36.8; O2SAT 99
[2023-04-01 20:00] VITALS: PULSE 90; RESP 18; O2SAT 99
[2023-04-02] MEDS: oxyCODONE/ACETAMINOPHEN (*CRX) 5-325 MG TABLET 1 TABLET PO ×3 (00:55→08:26)
[2023-04-02] MEDS: LEVOTHYROXINE SODIUM 75 MCG TABLET PO (05:50)
[2023-04-02 08:00] VITALS: PULSE 90; RESP 18; O2SAT 99
[2023-04-02] MEDS: PANTOPRAZOLE 40 MG TABLET PO (08:22)
[2023-04-02] MEDS: SENNA/DOCUSATE SODIUM TABLET 2 TAB PO (08:22)
[2023-04-02] MEDS: SUCRALFATE 1 GM TABLET PO (08:22)
[2023-04-02] MEDS: DONEPEZIL HCL 5 MG TABLET PO (08:22)
[2023-04-02] MEDS: SIMVASTATIN 10 MG TABLET PO (08:22)
[2023-04-02] MEDS: MULTIVITAMINS THERAPEUTIC TAB (*BKC) 1 TABLET PO (08:23)
[2023-04-02] MEDS: SERTRALINE HCL 50 MG TABLET PO (08:23)
[2023-04-02 08:36] LABS: Alanine Aminotransferase 15 U/L (6-35); Albumin Level 4.1 g/dL (3.5-5.1); Alkaline Phosphatase 87 U/L (38-126); Anion Gap 5 mmol/L (8-16); Aspartate Amino Transferase 24 U/L (14-36); Bilirubin,Total 1.2 mg/dL (0.2-1.3); Blood Urea Nitrogen 12 mg/dL (7-17); Calcium 8.5 mg/dL (8.4-10.2); Carbon Dioxide 31 mmol/L (22-30); Chloride 95 mmol/L (98-107); Estimated CRCL calculation 62 ml/min; Estimated Glomerular Filt Rate > 60; Glucose 110 mg/dL (65-110); Potassium 3.3 mmol/L (3.4-5.0); Sodium 131 mmol/L (137-145)
--- NOTE | 2023-04-02 09:12 | PCOTNOTE ---
Attempted to see pt for Occupational Therapy treatment. Pt was easily arousable with verbal cues however, would fall back asleep immediately afterwards. Will attempt at a later time today.
[2023-04-02 09:48] LABS: Basophils Absolute Auto 0.1 K/mm3 (0.0-0.1); Basophils Percent Auto 0.5 % (0.2-1.2); Eosinophils Percent Auto 0.1 % (0-4.4); Hemoglobin 11.2 g/dL (12.0-15.0); Immature Granulocyte Absolute 0.05 K/mm3 (0.00-0.031); Immature Granulocyte Percent A 0.4 % (0-0.5); Lymphocytes Percent Auto 15.3 % (18.3-44.2); Mean Corpuscular Hemoglobin 30.9 pg (26-34); Mean Corpuscular Volume 96.7 fl (80-100); Mean Platelet Volume 12.1 fl (7.4-10.4); Monocytes Absolute Auto 1.4 K/mm3 (0.1-0.6); Monocytes Percent Auto 11.8 % (2.6-8.5); Neutrophils Absolute Auto 8.4 K/mm3 (1.3-6.7); Neutrophils Percent Auto 71.9 % (45.5-73.1); Platelet Count Result 230 k/mm3 (150-375); Red Blood Count 3.62 M/mm3 (4.2-5.4); Red Cell Distribution Width 13.9 % (11.5-14.5); White Blood Count 11.7 K/mm3 (4.5-10.0)
--- NOTE | 2023-04-02 10:25 | PM.IMPN ---
Progress Note: A&P Assessment and Plan (1) Status post left knee replacement: Code(s): Z96.652 - Presence of left artificial knee joint Status: Acute Assessment and Plan: underwent left total knee replacement on 03/31/2023 management per Orthopedic surgery PT/OT during admission patient plans to return home following discharge, felt to be appropriate per PT/ OT and care coordination recommendations. patient feels comfortable to care for self at home pain management and DVT prophylaxis deferred to Orthopedic surgery (2) Hypothyroidism: Qualifiers: Hypothyroidism type: unspecified Qualified Code(s): E03.9 - Hypothyroidism, unspecified Code(s): E03.9 - Hypothyroidism, unspecified Status: Chronic Assessment and Plan: TSH 3.49, T4 0.9 Continue with levothyroxine (3) Memory loss: Code(s): R41.3 - Other amnesia Status: Chronic Assessment and Plan: patient appears to be somewhat could forgetful, however is alert and able to answer all questions appropriately Continue donepezil seems to be at baseline (4) Mixed hyperlipidemia: Code(s): E78.2 - Mixed hyperlipidemia Status: Acute Assessment and Plan: LFTs reviewed and are stable continue home simvastatin (5) Anxiety: Code(s): F41.9 - Anxiety disorder, unspecified Status: Chronic Assessment and Plan: mood is stable at this time Continue with Zoloft (6) Chronic GERD: Code(s): K21.9 - Gastro-esophageal reflux disease without esophagitis Status: Chronic Assessment and Plan: no acute issues Continue with Carafate and pantoprazole (7) Nausea and vomiting: Code(s): R11.2 - Nausea with vomiting, unspecified Status: Resolved Assessment and Plan: patient with postoperative nausea and vomiting most likely due to anesthesia improved with antiemetics resolved today and patient is tolerating diet increased p.o. intake as tolerated was recommended Subjective Date/time seen: 04/02/23 10:25 Interval history: date of service: 04/02/2023 Wendi Colon is a 78-year-old female with a history of GERD, hypothyroidism, osteoarthritis, and sleep apnea who underwent left total knee arthroplasty and is being seen in consultation for medical management. The patient reports that she is feeling well today. Her nausea has improved and she has not had any episodes of vomiting today. She did not eat much of her breakfast but was able to tolerate a few bites and is going to attempt to eat the oatmeal on her tray. States her left knee is comfortable at this time and she denies any pain. She plans to return home on discharge in feels comfortable caring for herself. She states that her very close friend lives across the street and will be there to assist her as needed. she denies shortness of breath or chest pain. Review of Systems Review of Systems: All systems reviewed & are unremarkable except as noted in HPI and below Exam Narrative: General: Well-nourished, well-appearing 78-year-old female, sitting up in bed, comfortable, NARD Neuro: awake, alert, answers all questions appropriately, speech clear, no focal neuro deficits noted HEENMT: normocephalic, atraumatic, EOMI, sclerae anicteric Respiratory: clear to auscultation bilaterally, nonlabored breathing Cardio: regular rate, regular rhythm with S1-S2 Abdomen: nondistended, normoactive bowel sounds, soft, nontender to palpation Extremities: no edema, erythema, or tenderness to palpation, DP pulses 2+ bilaterally, able to wiggle toes bilaterally Skin: no rashes or lesions, warm and dry Psych: appropriate mood and affect, judgment and insight intact Objective Data Vital Signs Vital Signs: Vital Signs - 24 hr 04/01/23 10:33 04/01/23 16:18 04/01/23 19:56 Temperature 97.7 F 98.0 F 98.3 F Pulse Rate 77 74 90 Respiratory Rate 18 1
--- NOTE | 2023-04-02 11:42 | PM.DS ---
DS: Admitting Diagnosis Discharge Date April 02, 2023 Admitting Diagnosis osteoarthritis left knee DS: Discharge Diagnosis Discharge Diagnosis (1) Status post left knee replacement: Code(s): Z96.652 - Presence of left artificial knee joint Status: Resolved Plan Patient will be discharged home. Outpatient therapy begins in a week. Instructions were provided her along with the request that she call the office with any questions. DS: Summary Hospital Course Hospital Course: Following the patient's left total knee replacement on March 31, 2023 she was admitted to the floor for observation following an outpatient procedure. She made good progress and was discharged home on postop day two. Hospital course essentially uneventful. Status at Discharge Functional status at discharge: uses cane/walker Overall status at discharge: patient is not back to baseline Time Spent with Patient Time attestation: Total time spent providing and/or coordinating discharge services: Exam Const: General: cooperative, no acute distress and alert Nutritional Appearance: other Orientation/consciousness: patient oriented x3 Limitations: no limitations HENMT: Head: normal to inspection Chest: Chest palpation & inspection: normal inspection of the chest Resp: Effort & Inspection: normal respiratory effort and able to speak in complete sentences GI: Inspection: other Other: Nontender, nondistended Neuro: General: patient oriented x3 Cognition (Neuro): normal cognition Speech: normal speech Gait exam (Neuro): Other gait observations present Extrem: General: normal to inspection and other Other: Exam of left knee wound shows that it is dry, well-opposed with minimal swelling and no bruising. Neurovascular status left lower extremity is unremarkable. Calves are negative. Psych: Appearance: grossly normal Mental Status: mental status grossly normal DS: Data Data Completed and Pending Labs on day of discharge: Labs from last 24 hours 04/02/23 04/01/23 07:23 12:15 WBC 11.7 H RBC 3.62 L Hgb 11.2 L Hct 35.0 L MCV 96.7 MCH 30.9 MCHC 32.0 RDW 13.9 Plt Count 230 MPV 12.1 H Immature Gran % (Auto) 0.4 Neut % (Auto) 71.9 Lymph % (Auto) 15.3 L Hooker % (Auto) 11.8 H Eos % (Auto) 0.1 Baso % (Auto) 0.5 Lymph # (Auto) 1.80 Hooker # (Auto) 1.4 H Eos # (Auto) 0.0 Baso # (Auto) 0.1 Abs Immat Gran (auto) 0.05 H Absolute Neuts (auto) 8.4 H Absolute Nucleated RBC 0.0 Nucleated RBC % 0.0 Sodium 131 L Potassium 3.3 L Chloride 95 L Carbon Dioxide 31 H Anion Gap 5 L BUN 12 Creatinine 0.70 Estim Creat Clear Calc 62 Estimated GFR > 60 Glucose 110 POC Capillary Glucose 137 H Calcium 8.5 Magnesium 2.0 Total Bilirubin 1.2 AST 24 ALT 15 Alkaline Phosphatase 87 Total Protein 7.0 Albumin 4.1 Discharge Plan Discharge Attending physician on discharge: Zeferino Melendez Consulting providers: Marin Ahumada Discharging Clinician: Zeferino Melendez Anticipated Discharge Date/Time: 04/02/23 11:38 Patient Disposition: Home, Self-Care Activity: may shower Diet: as tolerated Wound Care Instructions: incision open to air Discharge Instructions: 3 times daily for 20 minutes each time, reclining in bed with ice packs over the incision and a pillow underneath the calf of the affected leg, not under the knee. Your wound is glued so it is okay to remove the dressing, get into the shower and get the wound wet in two days. Be sure to read through all the information that came from a my office and the hospital. Most of the answers you will need can be found that material. Call the office with any questions that you cannot find answers to, or concerns you may have. After the Xarelto is completed, start taking one coated 325 mg aspirin daily and do this for four more weeks. Please call [facility] at [phone]
[2023-04-02 14:09] VITALS: BP 124/50; PULSE 75; RESP 16; TEMP 36.9; O2SAT 100
--- NOTE | 2023-04-02 15:33 | PC.NURSE ---
Patient fell at 1520. Discharge was already completed by RN, SENIOR PRODUCTION MANAGER was assisting pt with getting belongings together. Pt was assisted to the restroom and sat on the toilet. SENIOR PRODUCTION MANAGER stepped out of the restroom to provide privacy and informed pt to pull the red cord when she was finished. Pt pulled the cord and did not wait for SENIOR PRODUCTION MANAGER to come assist, attempted to get up from the toilet independently and lost her balance . Pt was found to be sitting on her bottom on the bathroom floor. Pt denied hitting head or hitting her knee. Pt was assisted back up by RN and SENIOR PRODUCTION MANAGER. RN called and informed surgeon, Dr. Melendez. Per Al, pt is OK to discharge if she is not reporting any injury. Charge nurse aware.
== END 2023-04-02 15:45 | disposition home or self-care (01) ==
LOC: ANHSURGERY 15:43 → ANH2MED 15:43
PROVIDERS: Nurse Practitioner; Admitting Provider Orthopaedic Surgery; PCP Family Medicine; Visit Provider Physician Assistant
PROC: (CPT 27447; principal; 2023-03-31 07:30)
DX: M17.12 Unilateral primary osteoarthritis, left knee (principal); Z79.1 Long term (current) use of non-steroidal anti-inflammatories (NSAID); F41.9 Anxiety disorder, unspecified; E03.9 Hypothyroidism, unspecified; R41.3 Other amnesia; G47.30 Sleep apnea, unspecified; E78.2 Mixed hyperlipidemia; G89.18 Other acute postprocedural pain; R11.2 Nausea with vomiting, unspecified; E66.9 Obesity, unspecified; K21.9 Gastro-esophageal reflux disease without esophagitis; Z68.31 Body mass index [BMI] 31.0-31.9, adult; F10.90 Alcohol use, unspecified, uncomplicated; Z79.01 Long term (current) use of anticoagulants; Z79.899 Other long term (current) drug therapy
CPT/HCPCS: 27447; 64447; 36415; 73560; 80053; 80307; 82948; 83735; 85025; 86850; 86900; 86901; 87081; 97110; 97116; 97161; 97165; 97530; 97535; A9270; C1713; C1776; G0378; J0171; J0360; J0690; J1100; J2250; J2270; J2405; J2704; J2795; J3010; J7120

== ENCOUNTER 2023-06-09 13:30 | Outpatient (RCR) | payer MEDICARE, MEDICAID, SELFPAY ==
--- NOTE | 2023-04-07 16:43 | PTOPEVAL1 ---
Assessment and note entered by Kimberley Nuñez, PT, DPT Evaluation Information Assessment Status Evaluation Diagnosis L TKA Onset 03/31/23 Subjective Information Pt states her leg is so sore and swollen and it is hard to walk. 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 She was educated about resting her leg to control pain and swelling. She states she needs to return to walking without pain and cutting her grass. Reported Pain Level Pain Score 5: Self Report Assessment PT Clinical Summary Wendi presents to therapy today for her initial evaluation following a L TKA on 03/31/23. Today she demonstrates active knee flexion to 83 deg, passive to 90 deg, and active knee extension to - 15 deg, passive to -10 deg. She demonstrates decreased ROM, strength, balance, and functional mobility from her uninvolved side and from her baseline. Skilled physical therapy services are indicated to address the depicts noted above, to improve functional mobility, and to return to PLOF. Plan of Care Interventions Electrical Stimulation,Gait Training,Hot Pack/Cold Pack,Manual Therapy,Neuro Re-education,Patient/ Caregiver Educati,Therapeutic Activities, Therapeutic Exercise PT Services Indicated Yes Treatment Frequency and 2x/wk for 5 wks Duration These treatments will address the objective and functional deficits as defined above. The patient will be advanced safely and appropriately in order for the patient to progress towards his/her prior level of function. Additional exercises will be introduced and as well as a comprehensive home exercise program upon discharge, if needed, ?to ensure carryover of functional gains achieved in the clinic. This treatment plan has been reviewed and agreement upon by the patient.
--- NOTE | 2023-04-23 14:40 | PCPTNOTE ---
Pt no showed visit today due to not having it written down, she was reminded of her upcoming appt later this week.
--- NOTE | 2023-04-28 14:31 | PCPTNOTE ---
Pt no showed this afternoon. Called pt and she stated she had a bad night and did not get much sleep. She states she forgot to call this morning. Pt was reminded of her next appt time and day.
--- NOTE | 2023-05-12 14:25 | PCPTNOTE ---
Pt no showed appt today. Pt was called and she stated she just forgot. Pt was reminded of her RE-evaluation on Friday at 1:30. Discussed with pt how important it was to come to the re-eval for her follow up with Dr. Melendez.
--- NOTE | 2023-05-14 14:25 | PTOPPROG ---
Assessment and note entered by Kimberley Nuñez, PT, DPT Evaluation Information Assessment Status Progress Diagnosis L TKA Onset 03/31/23 Subjective Information Pt states states her knee is getting better but she still continues to limp significantly when walking. Pt reports 75% return to PLOF. Assessment PT Clinical Summary Wendi presents to therapy today for her progress report following 7 visits of skilled therapy to treat her L TKA on 03/31/23. Today she demonstrates active knee flexion to 92 deg, passive to 114 deg, and active knee extension to -5 deg, passive to - 2 deg. Today she demonstrates improved ROM and strength compared to her initial visit. She continues to have gait deviations, difficulty with stairs navigation, decreased ROM, and decreased strength. Continuation of skilled physical therapy services are indicated to continue progressing towards therapy goals, to improve functional mobility, and to return to baseline function. Progress may be limited by cognitive and memory limitations. Plan of Care Interventions Electrical Stimulation,Gait Training,Hot Pack/Cold Pack,Manual Therapy,Neuro Re-education,Patient/ Caregiver Educati,Therapeutic Activities, Therapeutic Exercise PT Services Indicated Yes Treatment Frequency and 2x/wk for 4 wks Duration These treatments will address the objective and functional deficits as defined above. The patient will be advanced safely and appropriately in order for the patient to progress towards his/her prior level of function. Additional exercises will be introduced and as well as a comprehensive home exercise program upon discharge, if needed, ?to ensure carryover of functional gains achieved in the clinic. This treatment plan has been reviewed and agreement upon by the patient.
--- NOTE | 2023-05-21 11:24 | PCPTNOTE ---
Patient did not show up for scheduled appointment this date. Called and LVM to remind pt of her next appointment.
--- NOTE | 2023-05-23 10:45 | PCPTNOTE ---
Patient did not show up for scheduled appointment this date. Called and spoke with patient, reminded her of her next appointment. Also called Dr. Melendez's office to update them on her attendance concerns.
--- NOTE | 2023-06-02 11:32 | PCPTNOTE ---
Pt NS her appt today because she is not feeliing well and forgot to call and cancel. Pt was reminded of her next appt. at 12:30.
--- NOTE | 2023-06-04 12:54 | PCPTNOTE ---
Pt NS her visit this afternoon. Pt was called to offer her another appt at 2pm today and pt declined. Pt was remineded of her next appt., re-eval, on the .
--- NOTE | 2023-06-09 14:13 | PTOPDC ---
Assessment and note entered by Kimberley Nuñez, PT, DPT Evaluation Information Assessment Status Discharge Diagnosis L TKA Onset 03/31/23 Subjective Information Pt states things are doing really great and she hopes she does not have to ever come back here. Pt reports no functional limitations at this time. Reported Pain Level Pain Score 0: Self Report Assessment PT Clinical Summary Wendi presents to therapy today for her progress report following 10 visits of skilled therapy to treat her L TKA on 03/31/23. Today she demonstrates active knee flexion to 115deg, and continues to lack 5 deg of terminal knee extension. She continues to ambulate with decreased hip extension and decreased knee flexion on the L. There is still residual swelling in her calf as well. D/t ROM and gait it is indicated that pt continue with therapy, however pts poor compliance and her wishes to be done with therapy she will be discharged at this time. Plan of Care PT Services Indicated No
== END 2023-06-09 16:26 | disposition home or self-care (01) ==
LOC: ANHGOSHPT 13:30
PROVIDERS: PCP Family Medicine; Visit Provider Orthopaedic Surgery
DX: Z47.1 Aftercare following joint replacement surgery (principal); Z96.652 Presence of left artificial knee joint
CPT/HCPCS: 97014; 97110; 97112; 97116; 97140; 97161; 97530; 99199; G0283

== ENCOUNTER 2023-12-31 13:52 | Emergency (ER) | payer MEDICARE, MEDICAID, SELFPAY ==
[2023-12-31 14:10] VITALS: BP 122/66; PULSE 87; RESP 16; TEMP 36.9; O2SAT 99
--- NOTE | 2023-12-31 15:29 | ED.URI ---
HPI - URI/Sore Throat General Chief Complaint: Upper Respiratory Infection Stated Complaint: Cough/Sore Throat Time Seen by Provider: 12/31/23 15:10 Source: patient, RN notes reviewed and old records reviewed Mode of arrival: ambulatory Limitations: no limitations History of Present Illness HPI Narrative: 78-year-old female who presents to [facility] with complaints of cough and sore throat, congestion, red sclera and watery eyes with symptoms for one month with increase for past one week.Patient was prescribed with Tesslon Perles and medrol dose pack on the 4th and patient has taken OTC cold medications with no improvement. Patient has frequent cough denies any shortness of breath. MD elicited complaint: cough, sore throat, rhinorrhea, nasal congestion and other (red sclera and watery eyes) Pertinent past history: pneumonia and sinusitis Onset (ago): month(s) (1 with increase for past week) Consistency: progressively worsening Pain scale (0-10): 7 Able to tolerate fluids by mouth: Yes Treatments prior to arrival: cold medicine and other (allergy med and ) Related Data Home Medications Medication Instructions Recorded Confirmed multivitamin 1 tablet PO DAILY 07/31/22 12/03/23 levothyroxine 75 mcg tablet 75 mcg PO DAILY 10/09/22 12/03/23 sertraline 50 mg tablet 50 mg PO QAM 03/21/23 12/03/23 benzonatate 200 mg capsule mg PO 12/31/23 lisinopril 5 mg tablet mg 12/31/23 12/31/23 methylprednisolone 4 mg tablets in mg 12/31/23 a dose pack Allergies Allergy/AdvReac Type Severity Reaction Status Date / Time Sulfa (Sulfonamide Allergy Intermediate Rash Verified 12/31/23 14:33 Antibiotics) bee venom protein (honey bee) Allergy Unknown Hives Verified 12/31/23 14:33 Review of Systems Review of Systems: CONSTITUTIONAL: Denies malaise, chills, sweats, or fever. EYES: Denies visual changes, positive for bilateral eye redness and watering no vision changes or acute pain ENT: Reports rhinorrhea, congestion, sinus pain, no otalgia and positive for sore throat. CARDIOVASCULAR: Denies chest pain, palpitations, or edema. RESPIRATORY: Reports cough.? Denies acute dyspnea. GASTROINTESTINAL: Denies abdominal pain, nausea, vomiting, diarrhea SKIN: Denies rash or itching. MUSCULOSKELETAL:Reports myalgia. NEUROLOGIC: Denies headache. All systems reviewed & are unremarkable except as noted in HPI and below PMFSH Past Medical History Medical History Anxiety Arthritis of left knee Cataracts, bilateral Chronic GERD Family history of colon cancer in mother Hepatitis C antibody test negative (06/28/21) Hypothyroidism Left shoulder pain Memory loss Mixed hyperlipidemia Obesity (BMI 30.0-34.9) Pre-operative clearance Sleep apnea Untreated for 6 years. 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 She has a son and a daughter. She has a significant other. She is from her 1st . Surrogate medical decision maker: Henny Liang, daughter. Code status: Full code Caffeine-coffee daily Smoking status: Never smoker Second hand tobacco smoke exposure: No Additional smoking assessment comments: PT DENIES ALL FORMS OF TOBACCO USE Alcohol intake: never Alcohol use detai
== END 2023-12-31 15:49 | disposition home or self-care (01) ==
PROVIDERS: Emergency Provider Registered Nurse
DX: R05.1 Acute cough (principal); J06.9 Acute upper respiratory infection, unspecified; H10.9 Unspecified conjunctivitis; K21.9 Gastro-esophageal reflux disease without esophagitis; E03.9 Hypothyroidism, unspecified; M17.12 Unilateral primary osteoarthritis, left knee; E78.2 Mixed hyperlipidemia; E66.9 Obesity, unspecified; Z68.29 Body mass index [BMI] 29.0-29.9, adult; Z96.653 Presence of artificial knee joint, bilateral; F41.9 Anxiety disorder, unspecified
CPT/HCPCS: 99213; G0463